=== PATIENT | female | born 1955 | race Caucasian/White ===

== ENCOUNTER 2018-02-21 03:52 | Emergency (ER) | END 2018-02-21 06:02 | disposition home or self-care (01) ==

== ENCOUNTER 2018-12-04 18:58 | Inpatient (IN) | payer OTHER ==
[~2018-12-04] VITALS: Ht 167.6 cm; Wt 74.2 kg
[~2018-12-04 18:58] MED LIST: HYDR-906 PO; LEVO88TA36 PO; LOSA25TA2 PO; NAPR-688 PO; OMEP20CA16 PO; SIMV20TA2 PO; TYL500 PO
[2018-12-04] MEDS ORDERED: morphine 4 MG/ML VIAL IV STA (21:52)
[2018-12-04] MEDS ORDERED: ONDANSETRON 4 MG INJ IV STA (21:52)
--- NOTE | 2018-12-04 21:55 | ERD ---
ER Documentation Chief Complaint Chief Complaint AP HPI 63-year-old female history of hypertension, migraine headaches, thyroid disease, cholelithiasis and remote appendectomy presents to the ED complaining of a 2-day history of worsening, severe, epigastric and right upper quadrant pain that radiates to the back. Denies nausea, vomiting, diarrhea or constipation. No hematemesis, hematochezia or melena. Denies chest pain, palpitations or shortness of breath. No relieving or exacerbating factors. No fevers or chills. ROS All systems reviewed and are negative except as per history of present illness. Medications Home Meds Active Scripts Tramadol Hcl* (Ultram*) 50 Mg Tablet, 50 MG PO Q6H PRN for PAIN, #10 TAB Prov:SAROJ FOLEY PORTER USED CAR LOT 12/07/18 Docusate Sodium* (Colace*) 100 Mg Capsule, 100 MG PO BID, #20 CAP Prov:SAROJ FOLEY NP 12/07/18 Cholecalciferol* (Vitamin D3*) 1,000 Unit Tablet, 1000 UNIT PO DAILY, #30 TAB Prov:SAROJ FOLEY PORTER USED CAR LOT 12/07/18 Reported Medications Famotidine* (Acid Controller*) 20 Mg Tablet, 20 MG PO BID for 30 Days, #60 12/04/18 Diclofenac Potassium (Diclofenac Potassium) 50 Mg Tablet, 50 MG PO BID for 30 Days, #60 12/04/18 Loratadine* (Loratadine*) 10 Mg Tablet, 10 MG PO DAILY PRN for allergy 12/04/18 Fluticasone Propionate* (Fluticasone Propionate* Nasal) 50 Mcg/Ponce - 16 Gm Ponce.susp, 1 SPRAY NASAL BID, #1 BOTTLE TO EACH NOSTRIL 12/04/18 Turmeric (TURMERIC) 1 Gm Powder, 1 GM MC DAILY 12/04/18 Levothyroxine Sodium (Levothroid) 88 Mcg Tablet, 88 MCG PO DAILY 07/29/12 Losartan Potassium* (Cozaar*) 25 Mg Tablet, 25 MG PO DAILY 07/29/12 Discontinued Reported Medications Ketotifen Fumarate (KETOTIFEN FUMARATE) 5 Ml Drops, 5 ML OP, BOTTLE 12/04/18 Naproxen* (Naproxen*) 500 Mg Tablet, 500 MG PO BID 07/29/12 Simvastatin (Simvastatin) 20 Mg Tablet, 20 MG PO DAILY 07/29/12 Discontinued Scripts Acetaminophen* (Tylenol*) 500 Mg Tab, 500 MG PO Q4H PRN for MILD PAIN LEVEL 1-3, #20 TAB Prov:MARISSA CERVANTES DO 02/21/18 Omeprazole* (Omeprazole*) 20 Mg Capsule.dr, 20 MG PO DAILY, #30 CAP Prov:EN JOSÉ MD 12/21/15 Hydrocodone Bit-Acetaminophen ([place]) 5-325 Mg Tablet, 1 TAB PO Q4H PRN for PAIN, #10 TAB Prov:EN JOSÉ MD 12/21/15 Allergies Allergies: Coded Allergies: No Known Allergy (Unverified , 12/04/18) PMhx/Soc Reviewed in chart. As per HPI. History of Surgery: Yes (TONSILLECTOMY, APPENDECTOMY) Anesthesia Reaction: No Hx Neurological Disorder: Yes (hypothyroidism) Hx Respiratory Disorders: No Hx Cardiac Disorders: Yes (HTN, THYROID, HIGH CHOLESTEROL) Hx Psychiatric Problems: No Hx Miscellaneous Medical Probl: Yes (MIGRAINES, UTI) Hx Alcohol Use: No Hx Substance Use: No Hx Tobacco Use: No Smoking Status: Never smoker FmHx No stroke or cancer Physical Exam Vitals Vital Signs Date Temp Pulse Resp B/P (MAP) Pulse Ox O2 O2 Flow FiO2 Time Delivery Rate 12/04/18 68 13 123/78 97 Room Air 23:21 (93) 12/04/18 78 16 140/49 100 Room Air 22:53 (79) 12/04/18 99.2 96 18 181/89 96 19:04 (119) Physical Exam Const: No acute distress Head: Atraumatic Eyes: Normal Conjunctiva ENT: Normal External Ears, Nose and Mouth. Neck: Full range of motion. No meningismus. Resp: Clear to auscultation bilaterally Cardio: Regular rate and rhythm, no murmurs Abd: Soft, non tender, non distended. Normal bowel sounds Skin: No petechiae or rashes Back: No midline or flank tenderness Ext: No cyanosis, or edema Neur: Awake and alert Psych: Normal Mood and Affect Result Diagram: 12/07/188 12/07/18447 Results 24 hrs Laboratory Tests Test 12/04/18 21:15 12/04/18 21:25 12/05/18 00:01 Urine Color YELLOW Urine Clarity CLEAR Urine pH 6.0 Urine Specific [place] 1.004 Urine Ketones NEGATIVE mg/dL Urine Nitrite NEGATIVE mg/dL Urine Bilirubin NEGATIVE mg/dL Urine Urobilinogen 2+ mg/dL Urine Leukocyte Esterase NEGATIVE [place]/ul Urine Microscopic RBC 4 /HPF Urine Microscopic WBC 1 /HPF Urine Hemoglobin 2+ mg/dL Urine Glucose NEGATIVE mg/dL Urine Total Protein NEGATIVE mg/dl White Blood Count 9.2 10^3/ul Red Blood Count 5.09 10^6/ul Hemoglobin 14.7 g/dl Hematocrit 44.6 % Mean Corpuscular Volume 87.6 fl Mean Corpuscular Hemoglobin 28.9 pg Mean Corpuscular 33.0 g/dl Hemoglobin Concent Red Cell Distribution Width 14.4 % Platelet Count 252 10^3/UL Mean Platelet Volume 10.6 fl Immature Granulocytes % 0.300 % Neutrophils % 73.2 % Lymphocytes % 20.6 % Monocytes % 4.9 % Eosinophils % 0.7 % Basophils % 0.3 % Nucleated Red Blood Cells % 0.0 /100WBC Immature Granulocytes # 0.030 10^3/ul Neutrophils # 6.8 10^3/ul Lymphocytes # 1.9 10^3/ul Monocytes # 0.5 10^3/ul Eosinophils # 0.1 10^3/ul Basophils # 0.0 10^3/ul Nucleated Red Blood Cells # 0.0 10^3/ul Sodium Level 142 mmol/L Potassium Level 3.9 mmol/L Chloride Level 101 mmol/L Carbon Dioxide Level 27 mmol/L Anion Gap 14 Blood Urea Nitrogen 9 mg/dl Creatinine 0.88 mg/dl Est Glomerular Filtrat > 60 mL/min Rate mL/min Glucose Level 150 mg/dl Calcium Level 9.9 mg/dl Total Bilirubin 2.3 mg/dl Direct Bilirubin 0.40 mg/dl Indirect Bilirubin 1.9 mg/dl Aspartate Amino 451 IU/L Transf (AST/SGOT) Alanine 635 IU/L Aminotransferase (ALT/SGPT) Alkaline Phosphatase 196 IU/L Troponin I < 0.012 ng/ml Total Protein 8.3 g/dl Albumin 4.8 g/dl Globulin 3.50 g/dl Albumin/Globulin Ratio 1.37 Lipase 81 U/L Salicylates Level < 1.0 mg/dl Acetaminophen Level < 10.0 ug/ml Ethyl Alcohol Level < 10.0 mg/dl Hepatitis A IgM Antibody NON-REACTIVE Hepatitis B Surface Antigen NEGATIVE Hepatitis B Surface Antibody NEGATIVE Hepatitis B Core Total Antibody NEGATIVE Hepatitis C Antibody NEGATIVE Current Medications Medications Dose Sig/Reagan Start Time Status Last (Trade) Ordered Route PRN Stop Time Admin Dose Reason Admin Morphine 4 mg ONCE STAT 12/04/18 DC 12/04/18 Sulfate IV 21:52 12/04/18 21:59 (morphine) 21:53 Ondansetron 4 mg ONCE STAT 12/04/18 DC 12/04/18 HCl (Zofran IV 21:52 12/04/18 21:58 Inj) 21:53 Procedures/MDM DOCUMENTS REVIEWED: ED nurse, prior ED, prior records EKG: Time: 2228. Sinus rhythm. Ventricular rate 67. No ectopy. Normal TX and QRS. Nonspecific T wave changes. No acute ST elevation or depression. My Interpretation IMAGING: PROCEDURE: US Abdomen. CLINICAL INDICATION: Abdominal Pain TECHNIQUE: Multiple real-time images were acquired of the patient's abdomen and retroperitoneum utilizing a high resolution transducer. COMPARISON: None FINDINGS: The liver is of normal size and contour with no mass or intrahepatic ductal dilatation. There is fatty infiltration. Portal and hepatic vein are patent on color flow Doppler imaging. The common bile duct measures 5.2 millimeter in transverse diameter. sludge and stones are seen in the lumen of the gallbladder.. Gallbladder wall is not thickened and no abnormal pericholecystic fluid collection is seen. No sonographic Pelletier's sign was elicited during this exam. There is no ascites. The pancreas is grossly normal but not well visualized.. Right kidney measures 10.1 cm. No hydronephrosis, calculus or solid renal masses seen. There is an 8 mm parapelvic cyst of the right kidney. There is no evidence of abdominal aortic aneurysm or caval thrombosis. IMPRESSION: Sludge and stones in the lumen gallbladder. No evidence of cholecystitis or biliary obstruction. Fatty liver. 8 mm parapelvic cyst right kidney. .Vikash Boateng MD, MD Date Time Electronically viewed and signed by .Vikash Boateng MD, MD on 12/04/2018 23:25 .A/ CALLS/CONSULTATIONS: Dr Chamorro [employer]KIN-year-old female history of hypertension, migraine headaches, thyroid disease, cholelithiasis and remote appendectomy presents to the ED complaining of a 2-day history of worsening, severe, epigastric and right upper quadrant pain that radiates to the back. CBC negative for leukocytosis or anemia. Chemistry reveals no evidence of renal insufficiency or electrolyte abnormalities. Liver function tests significant for transaminitis and hyperbilirubinemia. Ultrasound reveals cholelithiasis but no CBD dilatation, pericholecystic fluid or gallbladder wall thickening. No evidence of pancreatitis as lipase is negative. Patient with transaminitis and hyperbilirubinemia suggestive of choledocholithiasis; will require admission for ERCP possible cholecystectomy. Admit to [facility] for surgery consultation, GI c onsultation, further evaluation and management. Counseled patient regarding diagnostic workup, diagnosis and need for admission. CARE TRANSFERRED. Time: 00:06 Dr Mcguire Departure Diagnosis: Primary Impression: Acute abdominal pain in right upper quadrant Additional Impressions: Cholelithiasis Cholelithiasis location: gallbladder Cholecystitis presence: without cho lecystitis Biliary obstruction: with biliary obstruction Qualified Codes: K80.21 - Calculus of gallbladder without cholecystitis with obstruction Biliary colic Hyperbilirubinemia Transaminitis Condition: Serious SHAYY CLINTON MD Dec 04, 2018 21:55
[2018-12-04] MEDS ORDERED: DICL50TA2 PO (23:54)
[2018-12-04] MEDS ORDERED: FLUT16SP17 NASAL (23:54)
[2018-12-04] MEDS ORDERED: KETO5DRO22 OP (23:54)
[2018-12-04] MEDS ORDERED: FAMO-142 PO (23:54)
[2018-12-04] MEDS ORDERED: TURM1POW MC (23:54)
[2018-12-04] MEDS ORDERED: LORA10TA3 PO (23:54)
[2018-12-05] VITALS (19 sets, daily range): BP systolic 128–170; BP diastolic 67–98; PULSE 62–80; RESP 12–20; Ht 167.6 cm; Wt 74.2 kg
[2018-12-05] MEDS ORDERED: ACETAMINOPHEN 325 MG TAB PO PRN (00:30)
[2018-12-05] MEDS ORDERED: ONDANSETRON 4 MG INJ IV PRN ×2 (00:30→17:30)
[2018-12-05] MEDS ORDERED: DOCUSATE SODIUM 100 MG CAP PO PRN (00:30)
[2018-12-05] MEDS ORDERED: NACL 0.9% 3 ML SYG IV SCH (00:30)
[2018-12-05] MEDS ORDERED: BISACODYL (EC) 5 MG TAB PO PRN (00:30)
[2018-12-05] MEDS ORDERED: HYDROmorphONE 0.5 MG/0.5 ML SYG IV PRN (00:30)
--- NOTE | 2018-12-05 02:28 | HP ---
Date/Time of Note Date/Time of Note DATE: 12/05/18 TIME: 02:28 Assessment/Plan VTE Prophylaxis SCD applied (from Nsg): Yes Pharmacological prophylaxis: NA/contraindicated Pharm contraindication: low risk/ambulating Lines/Catheters IV Catheter Type (from Nrsg): Saline Lock Urinary Cath still in place: No Assessment/Plan Hospital Course This is a 63-year female being admitted to the [facility] floor for: #1 transaminitis with hyperbilirubinemia: Etiology possibly secondary to biliary obstruction secondary to gallstones/sludge versus hepatitis. Patient does have a history of gallstones in the past. Ultrasound shows:Sludge and stones in the lumen gallbladder. No evidence of cholecystitis or biliary obstruction. Patient does not have any fevers or an elevated white blood cell count. At this point we will proceed with MRCP of the abdomen to fully evaluate. Will consult GI chetty. We will also check hepatitis panel, salicylate, acetaminophen levels, e thanol level. Clear liquid diet. Pain management. Monitor for signs of fever. General surgery is also been consulted by the ED Dr. Chamorro. #2 hypothyroidism: Check TSH, resume levothyroxine #3 hypertension: Resume lisinopril #4 GERD: Resume famotidine #5 migraines: Monitor at the current time. Will treat as indicated. No indication for naproxen or diclofenac at the current time #6 DVT GI Proflex: SCDs, no GI prophylaxis indicated Further treatment strategy will be implemented as per the clinical course Result Diagram: 12/04/18212412/04/182124 Results 24hrs Laboratory Tests Test 12/04/18 21:15 12/04/18 21:25 12/05/18 00:01 Urine Color YELLOW Urine Clarity CLEAR Urine pH 6.0 Urine Specific [place] 1.004 Urine Ketones NEGATIVE Urine Nitrite NEGATIVE Urine Bilirubin NEGATIVE Urine Urobilinogen 2+ H Urine Leukocyte Esterase NEGATIVE Urine Microscopic RBC 4 Urine Microscopic WBC 1 Urine Hemoglobin 2+ H Urine Glucose NEGATIVE Urine Total Protein NEGATIVE White Blood Count 9.2 Red Blood Count 5.09 Hemoglobin 14.7 Hematocrit 44.6 Mean Corpuscular Volume 87.6 Mean Corpuscular Hemoglobin 28.9 L Mean Corpuscular Hemoglobin Concent 33.0 Red Cell Distribution Width 14.4 Platelet Count 252 Mean Platelet Volume 10.6 H Immature Granulocytes % 0.300 Neutrophils % 73.2 Lymphocytes % 20.6 Monocytes % 4.9 Eosinophils % 0.7 Basophils % 0.3 Nucleated Red Blood Cells % 0.0 Immature Granulocytes # 0.030 Neutrophils # 6.8 Lymphocytes # 1.9 Monocytes # 0.5 Eosinophils # 0.1 Basophils # 0.0 Nucleated Red Blood Cells # 0.0 Sodium Level 142 Potassium Level 3.9 Chloride Level 101 Carbon Dioxide Level 27 Anion Gap 14 H Blood Urea Nitrogen 9 Creatinine 0.88 Est Glomerular Filtrat Rate mL/min > 60 Glucose Level 150 Calcium Level 9.9 Total Bilirubin 2.3 H Direct Bilirubin 0.40 H Indirect Bilirubin 1.9 H Aspartate Amino Transf (AST/SGOT) 451 H Alanine Aminotransferase (ALT/SGPT) 635 H Alkaline Phosphatase 196 H Troponin I < 0.012 Total Protein 8.3 H Albumin 4.8 Globulin 3.50 H Albumin/Globulin Ratio 1.37 Lipase 81 Salicylates Level < 1.0 L Acetaminophen Level < 10.0 L Ethyl Alcohol Level < 10.0 H Hepatitis B Surface Antigen NEGATIVE Hepatitis B Core Total Antibody Pending Hepatitis C Antibody Pending HPI/ROS Admit Date/Time Admit Date/Time Dec 05, 2018 at 00:15 Hx of Present Illness cc: ab pain x 3 days This is [id number] female history of hypertension, migraine headaches, thyroid disease, cholelithiasis and appendectomy presents to the ED complaining of a 3- day history of worsening, severe, epigastric and right upper quadrant pain that radiates to the back. Did report chills. Denies nausea, vomiting, diarrhea or constipation. No hematemesis, hematochezia or melena. Denies chest pain, palpitations or shortness of breath. No relieving or exacerbating factors. allergies: bactrim meds: see nov Const: As per HPI Eyes : No pain discharge or redness or change in visual acuity ENT: No pain, sore throat, congestion, congestion, dysphagia or discharge Respiratory: No shortness of breath, cough, sputum, wheezing, or pleuritic pain Cardiovascular: No chest pain, palpitation, PND, or edema GI : As per HPI Genitourinary: No dysuria, hematuria, flank pain , discharge or CVA tenderness Musculoskeletal: No joint pain, back pain, neck pain, restricted range of motion in neck or joints Skin: No rash, bruising or hives Neuro: No headache, dizziness, syncope, seizure, focal weakness Endocrine: No polyuria, polydipsia, temperature intolerance Psych: No hallucination, depression, anxiety or suicidal ideation PMH/Family/Social Past Medical History Hypothyroidism Hypertension GERD Migraines Medications Current Medications Famotidine (Pepcid) 20 mg BID PO ; Start 12/05/18 at 09:00 Levothyroxine Sodium (Synthroid) 88 mcg DAILY PO ; Start 12/05/18 at 09:00 IV Flush (NS 3 ml) 3 ml PER PROTOCOL IV ; Start 12/05/18 at 00:30 Ondansetron HCl (Zofran Inj) 4 mg Q6H PRN IV NAUSEA/VOMITING; Start 12/05/18 at 00:30 Acetaminophen (Tylenol Tab) 650 mg Q6H PRN PO .PAIN 1-3 OR TEMP; Start 12/05/18 at 00:30 Hydromorphone HCl (Dilaudid) 0.5 mg Q4H PRN IV .SEVERE PAIN 7-10; Start 12/05/18 at 00:30 Docusate Sodium (Colace) 100 mg Q12H PRN PO .CONSTIPATION; Start 12/05/18 at 00:30 Bisacodyl (Dulcolax) 5 mg DAILY PRN PO .CONSTIPATION; Start 12/05/18 at 00:30 Coded Allergies: No Known Allergy (Unverified , 12/04/18) Past Surgical History Appendectomy x1 Tonsillectomy Family History Significant Family History: no pertinent family hx Social History Alcohol Use: none Smoking Status: Never smoker Drug Use: none Exam/Review of Systems Vital Signs Vitals Vital Signs Date Temp Pulse Resp B/P (MAP) Pulse Ox O2 O2 Flow FiO2 Time Delivery Rate 12/05/18 98.5 62 20 142/67 94 01:42 (92) 12/05/18 Room Air 01:00 Intake and Output 12/04/18 12/04/18 12/05/18 1515:00 23:00 07:00 IntakeIntake Total 100 ml BalanceBalance 100 ml Exam Exam General: Patient is a pleasant female currently lying in bed in no acute distress HEENT: Atraumatic, normocephalic. The pupils are equal, round and reactive. Extraocular motor are intact, mild scleral icterus Neck: Supple with full range of motion. No rigidity or meningismus Chest: Nontender Lungs: Clear to auscultation bilaterally no crackles rales or wheezing Heart: Normal S1-S2, Regular rhythm and rate. No murmur, S3, or S4 Abdomen: Soft, tenderness to palpation of the right upper quadrant and epigastric region, no rebound tenderness. No guarding., Normal bowel sounds Extremities: Normal to inspection, no edema no cyanosis Neurologic: Normal mental status, speech normal, cranial nerves II through XII are intact, motor and sensory are intact, no focal weakness Additional Comments PROCEDURE: US Abdomen. CLINICAL INDICATION: Abdominal Pain TECHNIQUE: Multiple real-time images were acquired of the patient's abdomen and retroperitoneum utilizing a high resolution transducer. COMPARISON: None FINDINGS: The liver is of normal size and contour with no mass or intrahepatic ductal dila tation. There is fatty infiltration. Portal and hepatic vein are patent on color flow Doppler imaging. The common bile duct measures 5.2 millimeter in transverse diameter. sludge and stones are seen in the lumen of the gallbladder.. Gallbladder wall is not thickened and no abnormal pericholecystic fluid collection is seen. No sonographic Pelletier's sign was elicited during this exam. There is no ascites. The pancreas is grossly normal but not well visualized.. Right kidney measures 10.1 cm. No hydronephrosis, calculus or solid renal masses seen. There is an 8 mm parapelvic cyst of the right kidney. There is no evidence of abdominal aortic aneurysm or caval thrombosis. IMPRESSION: Sludge and stones in the lumen gallbladder. No evidence of cholecystitis or biliary obstruction. Fatty liver. 8 mm parapelvic cyst right kidney. .Vikash Boateng MD, MD Date Time Electronically viewed and signed by .Vikash Boateng MD, on 12/04/2018 23:25 .A/ CC: SHAYY CLINTON MD [id number] SHELDONVIVIAN BRIONES Dec 05, 2018 02:28
[2018-12-05] MEDS ORDERED: LORATADINE 10 MG TAB PO PRN (03:00)
[2018-12-05] MEDS: LOSARTAN 25 MG TAB PO SCH ×2 (03:27→20:24)
[2018-12-05] MEDS: LEVOTHYROXINE 88 MCG TAB PO SCH (07:28)
[2018-12-05] MEDS: FAMOTIDINE 20 MG TAB PO SCH ×2 (08:23→20:23)
[2018-12-05] MEDS: FLUTICASONE 0.05% 16 GM NAS SPRAY NASAL SCH ×3 (08:23→20:24)
[2018-12-05] MEDS ORDERED: LEVOTHYROXINE 88 MCG TAB PO SCH (09:00)
--- NOTE | 2018-12-05 09:14 | PN ---
Date/Time of Note Date/Time of Note DATE: 12/05/18 TIME: 09:13 Assessment/Plan VTE Prophylaxis Risk score (from Ns)>0 risk: 3 SCD applied (from Ns): Yes Pharmacological prophylaxis: NA/contraindicated Pharm contraindication: low risk/ambulating Lines/Catheters IV C[facility] Type [facility]from [facility] Saline Lock Urinary Cath still in place: No Assessment/Plan Hospital Course SUBJECTIVE: Continues to have abdominal pain. OBJECTIVE: Physical Exam General: Adequately build 63 year-old female lying in bed in no apparent distress. HEENT: Normocephalic, atraumatic. Eyes: Icteric sclerae, conjunctivae clear. ENT: Nasal septum midline, oral mucosa is dry. Neck supple, no JVD noticed. Respiratory: Bilaterally diminished breath sounds. No use of accessory muscles of respiration. No adventitious breath sounds. Cardiovascular: S1, S2 heard. Regular rate and rhythm. Abdomen: Soft and nondistended. Epigastric tenderness. Bowel sounds positive in all 4 quadrants. Genitourinary: Deferred. Extremities: No cyanosis, no clubbing, no edema. Peripheral pulses palpable. Neurologic: Cranial nerves II through XII grossly intact. The patient is awake, alert, and oriented. Skin: Normal skin turgor. No skin rashes. Labs & Vitals per chart ASSESSMENT & PLAN 63-year-old female with comorbidities including hypertension, hypothyroidism, migraine headache, and cholelithiasis who came to the emergency room with chief complaint of epigastric and right upper quadrant abdominal pain with ultrasound showing cholelithiasis. 1. Symptomatic cholelithiasis. Possible underlying choledocholithiasis. -Being followed by general surgery and gastroenterology. -ERCP pending. -Continue n.p.o. -Continue pain control. -Continue IV fluids. 2. Transaminitis with hyperbilirubinemia. -Most probably secondary to #1. -Hepatitis panel negative. -Pending ERCP. -Gastroenterology following. 3. Hypertension. -Continue antihypertensives. 4. Hypothyroidism. -Continue Synthroid. 5. History of migraine headaches. -Continue PRN analgesics. 6. Dyslipidemia. -Total cholesterol of 237 and LDL of 149. -Reinforce a low-cholesterol diet. 7. Fluids, electrolytes, and nutrition. -N.p.o. except for medications. -IVFs. 8. DVT prophylaxis. -Bilateral SCDs. 9. Plan. -Continue pain control. -Continue IV fluids. -Await ERCP. -Await gastroenterology and surgical evaluation. The patient was seen in collaboration with Dr. Lowe. Result Diagram: 12/05/18 0514 12/05/18 0514 Results 24hrs Laboratory Tests Test 12/04/18 21:15 12/04/18 21:25 12/05/18 00:01 12/05/18 05:14 Urine Color YELLOW Urine Clarity CLEAR Urine pH 6.0 Urine Specific [place] 1.004 Urine Ketones NEGATIVE Urine Nitrite NEGATIVE Urine Bilirubin NEGATIVE Urine Urobilinogen 2+ H Urine Leukocyte Esterase NEGATIVE Urine Microscopic RBC 4 Urine Microscopic WBC 1 Urine Hemoglobin 2+ H Urine Glucose NEGATIVE Urine Total Protein NEGATIVE White Blood Count 9.2 5.9 # Red Blood Count 5.09 4.79 Hemoglobin 14.7 13.8 Hematocrit 44.6 42.3 Mean Corpuscular Volume 87.6 88.3 Mean Corpuscular 28.9 L 28.8 L Hemoglobin Mean Corpuscular 33.0 32.6 Hemoglobin Concent Red Cell Distribution 14.4 14.6 H Width Platelet Count 252 230 Mean Platelet Volume 10.6 H 10.7 H Immature Granulocytes % 0.300 0.300 Neutrophils % 73.2 59.1 Lymphocytes % 20.6 31.4 Monocytes % 4.9 6.4 Eosinophils % 0.7 2.5 Basophils % 0.3 0.3 Nucleated Red Blood 0.0 0.0 Cells % Immature Granulocytes # 0.030 0.020 Neutrophils # 6.8 3.5 Lymphocytes # 1.9 1.9 Monocytes # 0.5 0.4 Eosinophils # 0.1 0.2 Basophils # 0.0 0.0 Nucleated Red Blood 0.0 0.0 Cells # Sodium Level 142 142 Potassium Level 3.9 3.9 Chloride Level 101 105 Carbon Dioxide Level 27 28 Anion Gap 14 H 9 # Blood Urea Nitrogen 9 9 Creatinine 0.88 0.88 Est Glomerular Filtrat > 60 > 60 Rate mL/min Glucose Level 150 90 # Calcium Level 9.9 9.7 Total Bilirubin 2.3 H 2.0 H Direct Bilirubin 0.40 H 0.00 # Indirect Bilirubin 1.9 H 2.0 H Aspartate Amino 451 H 334 H Transf (AST/SGOT) Alanine 635 H 554 H Aminotransferase (ALT/SG PT) Alkaline Phosphatase 196 H 166 H Troponin I < 0.012 Total Protein 8.3 H 7.5 Albumin 4.8 4.2 Globulin 3.50 H 3.30 H Albumin/Globulin Ratio 1.37 1.27 Lipase 81 Salicylates Level < 1.0 L Acetaminophen Level < 10.0 L Ethyl Alcohol Level < 10.0 H Hepatitis B Surface NEGATIVE Antigen Hepatitis B Surface NEGATIVE Antibody Hepatitis B Core NEGATIVE Total Antibody Hepatitis C Antibody NEGATIVE Hemoglobin A1c 5.4 Magnesium Level 1.9 Triglycerides Level 66 Cholesterol Level 237 H LDL Cholesterol, 149 Calculated HDL Cholesterol 75 Cholesterol/HDL Ratio 3.1 Thyroid Stimulating 20.800 H Hormone (TSH) Exam/Review of Systems Exam Vitals Vital Signs Date Temp Pulse Resp B/P (MAP) Pulse Ox O2 O2 Flow FiO2 Time Delivery Rate 12/05/18 97.7 70 18 128/76 95 07:19 (93) 12/05/18 Room Air 01:00 Intake and Output 12/04/18 12/04/18 12/05/18 1414:59 22:59 06:59 IntakeIntake Total 200 ml BalanceBalance 200 ml Results Results 24hrs Laboratory Tests Test 12/04/18 21:15 12/04/18 21:25 12/05/18 00:01 12/05/18 05:14 Urine Color YELLOW Urine Clarity CLEAR Urine pH 6.0 Urine Specific [place] 1.004 Urine Ketones NEGATIVE Urine Nitrite NEGATIVE Urine Bilirubin NEGATIVE Urine Urobilinogen 2+ H Urine Leukocyte Esterase NEGATIVE Urine Microscopic RBC 4 Urine Microscopic WBC 1 Urine Hemoglobin 2+ H Urine Glucose NEGATIVE Urine Total Protein NEGATIVE White Blood Count 9.2 5.9 # Red Blood Count 5.09 4.79 Hemoglobin 14.7 13.8 Hematocrit 44.6 42.3 Mean Corpuscular Volume 87.6 88.3 Mean Corpuscular 28.9 L 28.8 L Hemoglobin Mean Corpuscular 33.0 32.6 Hemoglobin Concent Red Cell Distribution 14.4 14.6 H Width Platelet Count 252 230 Mean Platelet Volume 10.6 H 10.7 H Immature Granulocytes % 0.300 0.300 Neutrophils % 73.2 59.1 Lymphocytes % 20.6 31.4 Monocytes % 4.9 6.4 Eosinophils % 0.7 2.5 Basophils % 0.3 0.3 Nucleated Red Blood 0.0 0.0 Cells % Immature Granulocytes # 0.030 0.020 Neutrophils # 6.8 3.5 Lymphocytes # 1.9 1.9 Monocytes # 0.5 0.4 Eosinophils # 0.1 0.2 Basophils # 0.0 0.0 Nucleated Red Blood 0.0 0.0 Cells # Sodium Level 142 142 Potassium Level 3.9 3.9 Chloride Level 101 105 Carbon Dioxide Level 27 28 Anion Gap 14 H 9 # Blood Urea Nitrogen 9 9 Creatinine 0.88 0.88 Est Glomerular Filtrat > 60 > 60 Rate mL/min Glucose Level 150 90 # Calcium Level 9.9 9.7 Total Bilirubin 2.3 H 2.0 H Direct Bilirubin 0.40 H 0.00 # Indirect Bilirubin 1.9 H 2.0 H Aspartate Amino 451 H 334 H Transf (AST/SGOT) Alanine 635 H 554 H Aminotransferase (ALT/SG PT) Alkaline Phosphatase 196 H 166 H Troponin I < 0.012 Total Protein 8.3 H 7.5 Albumin 4.8 4.2 Globulin 3.50 H 3.30 H Albumin/Globulin Ratio 1.37 1.27 Lipase 81 Salicylates Level < 1.0 L Acetaminophen Level < 10.0 L Ethyl Alcohol Level < 10.0 H Hepatitis B Surface NEGATIVE Antigen Hepatitis B Surface NEGATIVE Antibody Hepatitis B Core NEGATIVE Total Antibody Hepatitis C Antibody NEGATIVE Hemoglobin A1c 5.4 Magnesium Level 1.9 Triglycerides Level 66 Cholesterol Level 237 H LDL Cholesterol, 149 Calculated HDL Cholesterol 75 Cholesterol/HDL Ratio 3.1 Thyroid Stimulating 20.800 H Hormone (TSH) Medications Medication Current Medications Famotidine (Pepcid) 20 mg BID PO Last administered on 12/05/18at 08:23; Admin D ose 20 MG; Start 12/05/18 at 09:00 IV Flush (NS 3 ml) 3 ml PER PROTOCOL IV ; Start 12/05/18 at 00:30 Ondansetron HCl (Zofran Inj) 4 mg Q6H PRN IV NAUSEA/VOMITING; Start 12/05/18 at 00:30 Acetaminophen (Tylenol Tab) 650 mg Q6H PRN PO .PAIN 1-3 OR TEMP; Start 12/05/18 at 00:30 Hydromorphone HCl (Dilaudid) 0.5 mg Q4H PRN IV .SEVERE PAIN 7-10; Start 12/05/18 at 00:30 Docusate Sodium (Colace) 100 mg Q12H PRN PO .CONSTIPATION; Start 12/05/18 at 00:30 Bisacodyl (Dulcolax) 5 mg DAILY PRN PO .CONSTIPATION; Start 12/05/18 at 00:30 Fluticasone Propionate (Flonase 0.05% Nasal) 1 spray BID NASAL Last admini stered on 12/05/18at 08:23; Admin Dose 1 SPRAY; Start 12/05/18 at 09:00 Loratadine (Claritin) 10 mg DAILY PRN PO allergy; Start 12/05/18 at 03:00 Losartan Potassium (Cozaar) 25 mg QHS PO Last administered on 12/05/18at 03:27; Admin Dose 25 MG; Start 12/05/18 at 03:00 Levothyroxine Sodium (Synthroid) 88 mcg DAILY@0600 PO Last administered on 12/05/18at 07:28; Admin Dose 88 MCG; Start 12/05/18 at 06:00 SAROJ FOLEY NP Dec 05, 2018 09:14
--- NOTE | 2018-12-05 09:55 | CONS ---
Assessment/Plan Assessment/Plan Assessment/Plan (Daily) Patient very likely has choledocholithiasis and is scheduled for ERCP. Since there is no evidence of cholecystitis, if ERCP is successful patient can undergo interval cholecystectomy electively at another time. Further recommendations will be forthcoming based on the patient's further workup and clinical course. I will follow with you Consultation Date/Type/Reason Admit Date/Time Dec 05, 2018 at 00:15 Date of Consultation: Dec 05, 2018 Type of Consult General surgery Reason for Consultation Gallstones and jaundice Date/Time of Note DATE: 12/05/18 TIME: 09:48 Hx of Present Illness The patient is a reasonably healthy 63-year-old female who was first diagnosed with gallstones approximately 3 years ago. She has been asymptomatic. She now presents with 2 days of upper abdominal pain radiating to the back associated with slight jaundice. Abdominal ultrasound does not show signs of cholecystitis. Her LFTs suggest choledocholithiasis, and the patient is scheduled for ERCP today. She has had no fevers or chills. Review of systems: Head ears eyes nose and throat: Hypothyroidism Pulmonary: No evidence of asthma, pneumonia or shortness of breath Cardiac: Hypertension and hyperlipidemia. No history of chest pain, MO or arrhythmia Abdomen: As in the HPI. History of appendectomy Extremities: Unremarkable Neurologic. Asymptomatic : 4 pregnancies and 3 abortions Past Medical History Medical History: gallstones, hypothyroid Home Meds Active Scripts Acetaminophen* (Tylenol*) 500 Mg Tab, 500 MG PO Q4H PRN for MILD PAIN LEVEL 1-3, #20 TAB Prov:MARISSA CERVANTES DO 02/21/18 Reported Medications Famotidine* (Acid Controller*) 20 Mg Tablet, 20 MG PO BID for 30 Days, #60 12/04/18 Diclofenac Potassium (Diclofenac Potassium) 50 Mg Tablet, 50 MG PO BID for 30 Days, #60 12/04/18 Loratadine* (Loratadine*) 10 Mg Tablet, 10 MG PO DAILY PRN for allergy 12/04/18 Fluticasone Propionate* (Fluticasone Propionate* Nasal) 50 Mcg/[place] - 16 Gm [place].susp, 1 SPRAY NASAL BID, #1 BOTTLE TO EACH NOSTRIL 12/04/18 Ketotifen Fumarate (KETOTIFEN FUMARATE) 5 Ml Drops, 5 ML OP, BOTTLE 12/04/18 Turmeric (TURMERIC) 1 Gm Powder, 1 GM MC DAILY 12/04/18 Naproxen* (Naproxen*) 500 Mg Tablet, 500 MG PO BID 07/29/12 Levothyroxine Sodium (Levothroid) 88 Mcg Tablet, 88 MCG PO DAILY 07/29/12 Losartan Potassium* (Cozaar*) 25 Mg Tablet, 25 MG PO DAILY 07/29/12 Discontinued Reported Medications Simvastatin (Simvastatin) 20 Mg Tablet, 20 MG PO DAILY 07/29/12 Discontinued Scripts Omeprazole* (Omeprazole*) 20 Mg Capsule.dr, 20 MG PO DAILY, #30 CAP Prov:EN JOSÉ MD 12/21/15 Hydrocodone Bit-Acetaminophen ([place]) 5-325 Mg Tablet, 1 TAB PO Q4H PRN for PAIN, #10 TAB Prov:EN JOSÉ MD 12/21/15 Medications Current Medications Famotidine (Pepcid) 20 mg BID PO Last administered on 12/05/18at 08:23; Admin D ose 20 MG; Start 12/05/18 at 09:00 IV Flush (NS 3 ml) 3 ml PER PROTOCOL IV ; Start 12/05/18 at 00:30 Ondansetron HCl (Zofran Inj) 4 mg Q6H PRN IV NAUSEA/VOMITING; Start 12/05/18 at 00:30 Acetaminophen (Tylenol Tab) 650 mg Q6H PRN PO .PAIN 1-3 OR TEMP; Start 12/05/18 at 00:30 Hydromorphone HCl (Dilaudid) 0.5 mg Q4H PRN IV .SEVERE PAIN 7-10; Start 12/05/18 at 00:30 Docusate Sodium (Colace) 100 mg Q12H PRN PO .CONSTIPATION; Start 12/05/18 at 00:30 Bisacodyl (Dulcolax) 5 mg DAILY PRN PO .CONSTIPATION; Start 12/05/18 at 00:30 Fluticasone Propionate (Flonase 0.05% Nasal) 1 spray BID NASAL Last admini stered on 12/05/18at 08:23; Admin Dose 1 SPRAY; Start 12/05/18 at 09:00 Loratadine (Claritin) 10 mg DAILY PRN PO allergy; Start 12/05/18 at 03:00 Losartan Potassium (Cozaar) 25 mg QHS PO Last administered on 12/05/18at 03:27; Admin Dose 25 MG; Start 12/05/18 at 03:00 Levothyroxine Sodium (Synthroid) 88 mcg DAILY@0600 PO Last administered on 12/05/18at 07:28; Admin Dose 88 MCG; Start 12/05/18 at 06:00 Allergies: Coded Allergies: No Known Allergy (Unverified , 12/04/18) Past Surgical History Past Surgical Hx: appendectomy Family History Significant Family History: no pertinent family hx Social History Alcohol Use: none Smoking Status: Never smoker Drug Use: none Exam/Review of Systems Exam Vitals Vital Signs Date Temp Pulse Resp B/P (MAP) Pulse Ox O2 O2 Flow FiO2 Time Delivery Rate 12/05/18 97.7 70 18 128/76 95 07:19 (93) 12/05/18 Room Air 01:00 Intake and Output 12/04/18 12/04/18 12/05/18 1515:00 23:00 07:00 IntakeIntake Total 200 ml BalanceBalance 200 ml Constitutional: alert, oriented Psych: no complaints Head: normocephalic Eyes: other (Slight scleral icterus) ENMT: nl external ears & nose Neck: supple Respiratory: clear to auscultation Cardiovascular: regular rate and rhythm Gastrointestinal: soft, non-tender Musculoskeletal: nl extremities to inspection Extremities: normal pulses Neurological: [employer] II-XII intact Results Result Diagram: 12/05/18 0514 12/05/18 0514 Results 24hrs Laboratory Tests Test 12/04/18 21:15 12/04/18 21:25 12/05/18 00:01 12/05/18 05:14 Urine Color YELLOW Urine Clarity CLEAR Urine pH 6.0 Urine Specific [place] 1.004 Urine Ketones NEGATIVE Urine Nitrite NEGATIVE Urine Bilirubin NEGATIVE Urine Urobilinogen 2+ H Urine Leukocyte Esterase NEGATIVE Urine Microscopic RBC 4 Urine Microscopic WBC 1 Urine Hemoglobin 2+ H Urine Glucose NEGATIVE Urine Total Protein NEGATIVE White Blood Count 9.2 5.9 # Red Blood Count 5.09 4.79 Hemoglobin 14.7 13.8 Hematocrit 44.6 42.3 Mean Corpuscular Volume 87.6 88.3 Mean Corpuscular 28.9 L 28.8 L Hemoglobin Mean Corpuscular 33.0 32.6 Hemoglobin Concent Red Cell Distribution 14.4 14.6 H Width Platelet Count 252 230 Mean Platelet Volume 10.6 H 10.7 H Immature Granulocytes % 0.300 0.300 Neutrophils % 73.2 59.1 Lymphocytes % 20.6 31.4 Monocytes % 4.9 6.4 Eosinophils % 0.7 2.5 Basophils % 0.3 0.3 Nucleated Red Blood 0.0 0.0 Cells % Immature Granulocytes # 0.030 0.020 Neutrophils # 6.8 3.5 Lymphocytes # 1.9 1.9 Monocytes # 0.5 0.4 Eosinophils # 0.1 0.2 Basophils # 0.0 0.0 Nucleated Red Blood 0.0 0.0 Cells # Sodium Level 142 142 Potassium Level 3.9 3.9 Chloride Level 101 105 Carbon Dioxide Level 27 28 Anion Gap 14 H 9 # Blood Urea Nitrogen 9 9 Creatinine 0.88 0.88 Est Glomerular Filtrat > 60 > 60 Rate mL/min Glucose Level 150 90 # Calcium Level 9.9 9.7 Total Bilirubin 2.3 H 2.0 H Direct Bilirubin 0.40 H 0.00 # Indirect Bilirubin 1.9 H 2.0 H Aspartate Amino 451 H 334 H Transf (AST/SGOT) Alanine 635 H 554 H Aminotransferase (ALT/SG PT) Alkaline Phosphatase 196 H 166 H Troponin I < 0.012 Total Protein 8.3 H 7.5 Albumin 4.8 4.2 Globulin 3.50 H 3.30 H Albumin/Globulin Ratio 1.37 1.27 Lipase 81 Salicylates Level < 1.0 L Acetaminophen Level < 10.0 L Ethyl Alcohol Level < 10.0 H Hepatitis B Surface NEGATIVE Antigen Hepatitis B Surface NEGATIVE Antibody Hepatitis B Core NEGATIVE Total Antibody Hepatitis C Antibody NEGATIVE Hemoglobin A1c 5.4 Magnesium Level 1.9 Triglycerides Level 66 Cholesterol Level 237 H LDL Cholesterol, 149 Calculated HDL Cholesterol 75 Cholesterol/HDL Ratio 3.1 Thyroid Stimulating 20.800 H Hormone (TSH) Medications Medication Current Medications Famotidine (Pepcid) 20 mg BID PO Last administered on 12/05/18at 08:23; Admin Dose 20 MG; Start 12/05/18 at 09:00 IV Flush (NS 3 ml) 3 ml PER PROTOCOL IV ; Start 12/05/18 at 00:30 Ondansetron HCl (Zofran Inj) 4 mg Q6H PRN IV NAUSEA/VOMITING; Start 12/05/18 at 00:30 Acetaminophen (Tylenol Tab) 650 mg Q6H PRN PO .PAIN 1-3 OR TEMP; Start 12/05/18 at 00:30 Hydromorphone HCl (Dilaudid) 0.5 mg Q4H PRN IV .SEVERE PAIN 7-10; Start 12/05/18 at 00:30 Docusate Sodium (Colace) 100 mg Q12H PRN PO .CONSTIPATION; Start 12/05/18 at 00:30 Bisacodyl (Dulcolax) 5 mg DAILY PRN PO .CONSTIPATION; Start 12/05/18 at 00:30 Fluticasone Propionate (Flonase 0.05% Nasal) 1 spray BID NASAL Last administered on 12/05/18at 08:23; Admin Dose 1 SPRAY; Start 12/05/18 at 09:00 Loratadine (Claritin) 10 mg DAILY PRN PO allergy; Start 12/05/18 at 03:00 Losartan Potassium (Cozaar) 25 mg QHS PO Last administered on 12/05/18at 03:27; Admin Dose 25 MG; Start 12/05/18 at 03:00 Levothyroxine Sodium (Synthroid) 88 mcg DAILY@0600 PO Last administered on 12/05/18at 07:28; Admin Dose 88 MCG; Start 12/05/18 at 06:00 TERE FERGUSON MD Dec 05, 2018 09:55
--- NOTE | 2018-12-05 12:13 | CONS ---
DATE OF ADMISSION: 12/05/2018 DATE OF CONSULTATION: 12/05/2018 TYPE OF CONSULTATION: Gastroenterology. Dear Dr. Mcguire: Thank you for asking me to see Mrs. Sainz in GI consultation. HISTORY OF PRESENT ILLNESS: The patient, as you know, is a 63-year-old white female who has been exp eriencing epigastric and right upper quadrant pain for the past 3 days and pain has been getting wors e gradually. She had associated nausea but no vomiting. She had some chills, but no fever. Patient had a similar problem several months ago and she was told she has gallstones. No history of jaundice in the past but right now she has got abnormal liver functions. No diarrhea, no constipation. PAST MEDICAL HISTORY: Appendectomy. REVIEW OF SYSTEM: Positive for hypertension, hypothyroidism and migraine. MEDICATIONS: Prior to the admission includes: 1. Losartan. 2. Tylenol. 3. Diclofenac. 4. Naprosyn. 5. Fluticasone. 6. Ketotifen fumarate. 7. Famotidine. 8. Levothyroxine. 9. Turmeric. SOCIAL HISTORY: Patient does not smoke or drink. No history of liver disease in the past. PHYSICAL EXAMINATION: GENERAL: The patient is a 63-year-old white female who at this time she is alert, she is well built. VITAL SIGNS: She is afebrile, blood pressure is 128/76, pulse is 70, respiratory rate 18. CARDIOVASCULAR: Normal heart sounds. RESPIRATORY: Normal breath sounds. ABDOMEN: Showed unremarkable findings. LABORATORY WORKUP: Laboratory workup, potassium 3.9, bilirubin is in the range of 2.3 and 2.0, AST 4 51 and then 334, ALT 675 and 554, alkaline phosphatase 596 and then 166, lipase 81. TSH is 20.8. WB C count down to 5.9 from 9.2, hemoglobin 13.8, platelet count 230,000. Prothrombin time is 12.8, INR is 0.95. The ultrasound of the upper abdomen showed evidence of cholelithiasis, no evidence of chol ecystitis or biliary obstruction, fatty liver. An 8 mm pancreatic cyst noted in the right kidney. CLINICAL IMPRESSION: The patient presenting with what seems like acute cholecystitis, although ultra sound does not show any evidence of cholecystitis. She has abnormal liver functions. Choledocholith iasis is a good possibility. I doubt if we are dealing with hepatocellular process. PLAN: Recommend ERCP to make a diagnosis as well as to remove the stones in the common bile duct. Once again, Dr. Mcguire, thank you for this consultation. Dictated By: NAVI KATE MD NC/NTS Conf#: [id number] DID#: [id number] CC: VIVIAN MCGUIRE MD;*EndCC*
[2018-12-05] MEDS: KETOROLAC 30 MG INJ IV PRN (15:06)
[2018-12-05] MEDS ORDERED: SUGAMMADEX SODIUM 200 MG/2 ML VIAL IV ONE (17:08)
[2018-12-05] MEDS ORDERED: PROPOFOL 100 ML ONE (17:08)
[2018-12-05] MEDS ORDERED: DEXAMETHASONE 4 MG/ML 5 ML INJ ONE (17:08)
[2018-12-05] MEDS ORDERED: LIDOCAINE 100 MG SYRINGE ONE (17:08)
[2018-12-05] MEDS ORDERED: ROCURONIUM 50 MG INJ ONE (17:08)
[2018-12-05] MEDS ORDERED: ONDANSETRON 4 MG INJ ONE (17:08)
--- NOTE | 2018-12-05 17:12 | PREAC ---
Date/Time of Note Date/Time of Note DATE: 12/05/18 TIME: 17:11 Anesthesia Eval and Record Evaluation Time Pre-Procedure Interview DATE: 12/05/18 TIME: 17:11 Age 63 Sex female NPO: 8 hrs Preoperative diagnosis epigastric and right upper quadrant pain Planned procedure ERCP Past Medical History Past Medical History: Includes Cardio: HTN, Dyslipidemia Endo: Hypothyroid GI: GERD Surgery & Anesthesia Issues No known issue Meds Anticoagulation: No Beta Mone within 24 hr: No Reason Beta Mone not given: Pt. not on B-Mone Active Scripts Acetaminophen* (Tylenol*) 500 Mg Tab, 500 MG PO Q4H PRN for MILD PAIN LEVEL 1-3, #20 TAB Prov:MARISSA CERVANTES DO 02/21/18 Reported Medications Famotidine* (Acid Controller*) 20 Mg Tablet, 20 MG PO BID for 30 Days, #60 12/04/18 Diclofenac Potassium (Diclofenac Potassium) 50 Mg Tablet, 50 MG PO BID for 30 Days, #60 12/04/18 Loratadine* (Loratadine*) 10 Mg Tablet, 10 MG PO DAILY PRN for allergy 12/04/18 Fluticasone Propionate* (Fluticasone Propionate* Nasal) 50 Mcg/[place] - 16 Gm [place].susp, 1 SPRAY NASAL BID, #1 BOTTLE TO EACH NOSTRIL 12/04/18 Ketotifen Fumarate (KETOTIFEN FUMARATE) 5 Ml Drops, 5 ML OP, BOTTLE 12/04/18 Turmeric (TURMERIC) 1 Gm Powder, 1 GM MC DAILY 12/04/18 Naproxen* (Naproxen*) 500 Mg Tablet, 500 MG PO BID 07/29/12 Levothyroxine Sodium (Levothroid) 88 Mcg Tablet, 88 MCG PO DAILY 07/29/12 Losartan Potassium* (Cozaar*) 25 Mg Tablet, 25 MG PO DAILY 07/29/12 Discontinued Reported Medications Simvastatin (Simvastatin) 20 Mg Tablet, 20 MG PO DAILY 07/29/12 Discontinued Scripts Omeprazole* (Omeprazole*) 20 Mg Capsule.dr, 20 MG PO DAILY, #30 CAP Prov:EN JOSÉ MD 12/21/15 Hydrocodone Bit-Acetaminophen ([place]) 5-325 Mg Tablet, 1 TAB PO Q4H PRN for PAIN, #10 TAB Prov:EN JOSÉ MD 12/21/15 Current Medications Famotidine (Pepcid) 20 mg BID PO Last administered on 12/05/18at 08:23; Admin Dose 20 MG; Start 12/05/18 at 09:00 IV Flush (NS 3 ml) 3 ml PER PROTOCOL IV ; Start 12/05/18 at 00:30 Ondansetron HCl (Zofran Inj) 4 mg Q6H PRN IV NAUSEA/VOMITING; Start 12/05/18 at 00:30 Acetaminophen (Tylenol Tab) 650 mg Q6H PRN PO .PAIN 1-3 OR TEMP; Start 12/05/18 at 00:30 Hydromorphone HCl (Dilaudid) 0.5 mg Q4H PRN IV .SEVERE PAIN 7-10; Start 12/05/18 at 00:30 Docusate Sodium (Colace) 100 mg Q12H PRN PO .CONSTIPATION; Start 12/05/18 at 00: 30 Bisacodyl (Dulcolax) 5 mg DAILY PRN PO .CONSTIPATION; Start 12/05/18 at 00:30 Fluticasone Propionate (Flonase 0.05% Nasal) 1 spray BID NASAL Last administered on 12/05/18at 08:23; Admin Dose 1 SPRAY; Start 12/05/18 at 09:00 Loratadine (Claritin) 10 mg DAILY PRN PO allergy; Start 12/05/18 at 03:00 Losartan Potassium (Cozaar) 25 mg QHS PO Last administered on 12/05/18at 03:27; Admin Dose 25 MG; Start 12/05/18 at 03:00 Levothyroxine Sodium (Synthroid) 88 mcg DAILY@0600 PO Last administered on 12/05/18at 07:28; Admin Dose 88 MCG; Start 12/05/18 at 06:00 Ketorolac Tromethamine (Toradol) 30 mg Q6H PRN IV PAIN LEVEL 1-3 Last administered on 12/05/18at 15:06; Admin Dose 30 MG; Start 12/05/18 at 15:00; Stop 12/08/18 at 14:59 Meds reviewed: Yes Allergies Coded Allergies: No Known Allergy (Unverified , 12/04/18) Allergies Reviewed: Yes Labs/Studies Labs Reviewed: Reviewed by anesthesiologist Result Diagram: 12/05/18 0514 12/05/18513 Laboratory Tests 12/05/18 05:14 test: N/A Studies: ECG (SR) Pre-procedure Exam Last vitals Vital Signs Date Temp Pulse Resp B/P (MAP) Pulse Ox O2 O2 Flow FiO2 Time Delivery Rate 12/05/18 97.5 73 18 148/78 91 13:33 (101) 12/05/18 Room Air 01:00 Airway: Adequate mouth opening Mallampati: Mallampati II Teeth: Normal Lung: Normal Heart: Normal ASA Physical Status ASA physical status: 2 Emergency: None Planned Anesthetic General/MAC: ETT Pre-operative Attestations Prior to commencing anesthesia and surgery, the patient was re-evaluated, there was verification of: *The patient's identity *The results of appropriate recent lab work and preoperative vital signs *The above evaluation not changing prior to induction *Anesthetic plan, risk benefits, alternative and complications discussed with patient/family; questions answered; patient/family understands, accepts and wishes to proceed. LANDY BRASWELL Dec 05, 2018 17:12
[2018-12-05] MEDS ORDERED: INDOMETHACIN 50 MG SUPP PR ONE (17:30)
[2018-12-05] MEDS ORDERED: hydrALAzine 20 MG INJ IV PRN (17:30)
[2018-12-05] MEDS ORDERED: METOCLOPRAMIDE 10 MG INJ IV PRN (17:30)
[2018-12-05] MEDS ORDERED: LABETALOL HCL 20MG INJ IV PRN (17:30)
[2018-12-05] MEDS ORDERED: FENTAnyl 50 MCG/ML VIAL IV PRN ×2 (17:30)
[2018-12-05] MEDS ORDERED: FENTAnyl 50 MCG/ML VIAL ONE ×2 (17:36→18:18)
--- NOTE | 2018-12-05 18:42 | OPR ---
Date/Time of Note Date/Time of Note DATE: 12/05/18 TIME: 18:36 Operative Report Preoperative Diagnosis obstructive jaundice r/o cbd stones Postoperative Diagnosis sludge removed from cbd stent placed Operation/Procedure Performed ercp sphincterotomy cbd sludge removed stent placed Surgeon see signature line Chlorine Operator none Anesthesia Type: general Anesthesiologist: LANDY BRASWELL Estimated Blood Loss: none Transfusion none Specimen none Grafts/Implants none Complications none Pt Condition Post Procedure: stable Disposition: PACU Indications ?obstructive jaundice r/o cbd stones Procedure Description ercp and sphincterotomy performed sludge removed from cbd cbd stentb placed NAVI KATE MD Dec 05, 2018 18:42
--- NOTE | 2018-12-05 19:01 | PAC ---
Date/Time of Note Date/Time of Note DATE: 12/05/18 TIME: 19:01 Post-Anesthesia Notes Post-Anesthesia Note Last documented vital signs Vital Signs Date Temp Pulse Resp B/P (MAP) Pulse Ox O2 O2 Flow FiO2 Time Delivery Rate 12/05/18 97.5 73 18 148/78 91 13:33 (101) 12/05/18 Room Air 01:00 Activity: WNL Respiratory function: WNL Cardiovascular function: WNL Mental status: Baseline Pain reasonably controlled: Yes Hydration appropriate: Yes Nausea/Vomiting absent: Yes LANDY BRASWELL Dec 05, 2018 19:01
--- NOTE | 2018-12-05 23:53 | GILP ---
DATE OF PROCEDURE: PROCEDURES: ERCP, sphincterotomy, removal of stones from the common bile duct and CBD stent was plac ed. PREOPERATIVE DIAGNOSIS: The patient is presenting with history of abdominal pain and she has got cho lelithiasis on ultrasound. Liver enzymes are abnormal. This could be very likely suggestive of a co mmon bile duct stone. Hence, the procedure is performed to rule out common duct stones. POSTOPERATIVE DIAGNOSIS: Sludge was removed from the common bile duct. Mildly dilated common bile d uct noted. There was a filling defect noted in the common bile duct. Hence, at this time sphinctero garth was performed. Stent was removed. Common bile duct stent was placed. DESCRIPTION OF PROCEDURE: After informed written consent was obtained, patient was intubated by [facility] registered nurse livestock slaughterer, Mr. Flowerrera. While the patient was in prone position, Pentax vid eo side-viewing duodenoscope was inserted into the oropharynx, then into the esophagus, subsequently into the stomach, and then into the duodenum. Ampulla was located in normal location with normal mor phology. Cannulation was performed by using the Dreamtome and there was one filling defect noted marivel ating in the common bile duct and this was felt to be common bile duct stone. Because of this, by us ing the cutting wire of the Dreamtome, sphincterotomy was performed, about 8 mm cut was made and subs equently Dreamtome was removed. Stone extraction balloon was inserted into the common hepatic duct. Balloon sweeping was performed and this yielded the sludge and some gravel from the common bile duct , no large stones noted. After several episodes of sweeping, the balloon was removed. Over the guid ewire, a 10 x 7 [place] type of endobiliary prosthesis was inserted into the common bile duct acros s the ampulla into the duodenum. Photographs were obtained and the procedure was terminated. PLAN: Recommend to proceed with laparoscopic cholecystectomy as per discretion of the surgeon. Dictated By: NAVI LEÓN/MARIA ESTHER Conf#: [id number] DID#: [id number] CC: Dr. garcia; VIVIAN CHUNG MD;*EndCC*
[2018-12-06] VITALS (30 sets, daily range): BP systolic 116–166; BP diastolic 62–90; PULSE 72–97; RESP 13–25
[2018-12-06] MEDS: LEVOTHYROXINE 88 MCG TAB PO SCH (05:26)
[2018-12-06] MEDS ORDERED: SUCCINYLCHOLINE CHLORIDE 100 MG/5 ML SYG IV ONE (07:00)
[2018-12-06] MEDS ORDERED: BUPIVACAINE 0.25% (MPF) 30 ML INJ ONE (07:23)
[2018-12-06] MEDS ORDERED: PROPOFOL 20 ML ONE (07:59)
[2018-12-06] MEDS ORDERED: ROPIVACAINE 0.5 % 30 ML VIAL ONE (07:59)
[2018-12-06] MEDS ORDERED: MIDAZOLAM 1 MG/ML 2 ML INJ ONE (07:59)
[2018-12-06] MEDS ORDERED: ROCURONIUM 50 MG INJ ONE (07:59)
[2018-12-06] MEDS ORDERED: LIDOCAINE 1% (MDV) 20 ML INJ ONE (07:59)
[2018-12-06] MEDS ORDERED: DIPHENHYDRAMINE 50 MG INJ IV PRN (08:00)
[2018-12-06] MEDS ORDERED: LABETALOL HCL 20MG INJ IV PRN (08:00)
[2018-12-06] MEDS ORDERED: HYDROmorphONE 1 MG/5 ML IV SYRINGE IV PRN ×2 (08:00)
[2018-12-06] MEDS ORDERED: MEPERIDINE 25 MG INJ IV PRN (08:00)
[2018-12-06] MEDS ORDERED: hydrALAzine 20 MG INJ IV PRN (08:00)
[2018-12-06] MEDS ORDERED: CEFAZOLIN 1 GM INJ ONE (08:34)
[2018-12-06] MEDS ORDERED: DEXAMETHASONE 4 MG/ML 5 ML INJ ONE (08:38)
[2018-12-06] MEDS ORDERED: ONDANSETRON 4 MG INJ ONE (08:38)
[2018-12-06] MEDS ORDERED: LABETALOL HCL 20MG INJ ONE (08:56)
[2018-12-06] MEDS: FAMOTIDINE 20 MG TAB PO SCH ×2 (09:00→20:54)
[2018-12-06] MEDS: FLUTICASONE 0.05% 16 GM NAS SPRAY NASAL SCH ×2 (09:00→20:50)
[2018-12-06] MEDS ORDERED: GLYCOPYRROLATE 0.4 MG INJ ONE (09:17)
[2018-12-06] MEDS ORDERED: NEOSTIGMINE 10 MG INJ ONE (09:17)
--- NOTE | 2018-12-06 09:44 | PAC ---
Date/Time of Note Date/Time of Note DATE: 12/06/18 TIME: 09:44 Post-Anesthesia Notes Post-Anesthesia Note Last documented vital signs Vital Signs Date Temp Pulse Resp B/P (MAP) Pulse Ox O2 O2 Flow FiO2 Time Delivery Rate 12/06/18 98 80 18 152/63 98 0944 12/06/18 Room Air 00:00 12/05/18 8.0 19:17 Activity: WNL Respiratory function: WNL Cardiovascular function: WNL Mental status: Baseline Pain reasonably controlled: Yes Hydration appropriate: Yes Nausea/Vomiting absent: Yes MAYTE MAYO DO Dec 06, 2018 09:44
--- NOTE | 2018-12-06 09:49 | OPR ---
Date/Time of Note Date/Time of Note DATE: 12/06/18 TIME: 09:43 Operative Report Procedure Date: Dec 06, 2018 Preoperative Diagnosis Cholelithiasis with chronic cholecystitis Postoperative Diagnosis Cholelithiasis with chronic cholecystitis Operation/Procedure Performed Laparoscopic cholecystectomy Surgeon Tere Ferguson MD Veterinary Technician Instructor None Anesthesia Type: general Anesthesiologist: MAYTE MAYO DO Estimated Blood Loss: 0 - 10 ml's Transfusion none Specimen Gallbladder Grafts/Implants none Tubes/Drains None Complications none Pt Condition Post Procedure: stable Disposition: PACU Indications Symptomatic cholelithiasis Procedure Description The patient is 1 day status post successful ERCP with stent placement. Today we are proceeding with completion cholecystectomy. After satisfactory general endotracheal anesthesia was achieved, the abdomen was prepped and draped in the usual fashion. The abdomen was insufflated with carbon dioxide through an umbilical Veress needle to 15 mmHg pressure. The Veress needle was removed and a 5 mm umbilical incision was made in the center of the umbilicus marked just above the small umbilical hernia. A 5 mm trocar was placed. A 5 mm 0 degree lens was placed. Laparoscopy was unremarkable other than a distended gallbladder. Under direct visualization a 12 mm epigastric trocar was placed as well as 2 more 5 mm right lateral abdominal trochars. The dome of the gallbladder was grasped and retracted superiorly. The infundibulum of the gallbladder was grasped and retracted inferolaterally. The hepatoduodenal ligament was carefully dissected between the gallbladder and the well-visualized tarun hepatis. The cystic duct was dissected circumferentially then triply hemoclipped and divided high at the junction of the gallbladder and cystic duct. The cystic artery was identified immediately posteriorly, and triply hemoclipped and divided. The gallbladder was then dissected from below using electrocautery dissection and placed fully intact into an Endo Catch removed via the epigastric route. Hemostasis was total and irrigant returned clear. The abdomen was then desufflated and all trochars were removed. The fascia of the epigastrium was closed with a single suture of 0 Vicryl. The subcu was closed with interrupted 3-0 Vicryl. The skin incisions were closed with subcuticular 4-0 Monocryl sutures and Dermabond. Sponge and needle counts were reported as correct x2. TERE FERGUSON MD Dec 06, 2018 09:49
[2018-12-06] MEDS ORDERED: ONDANSETRON 4 MG INJ IV PRN (10:00)
[2018-12-06] MEDS ORDERED: morphine 2 MG INJ IV PRN (10:00)
[2018-12-06] MEDS ORDERED: OXYCODONE/ACETAMINOPHEN (5/325) TAB PO PRN ×2 (10:00)
--- NOTE | 2018-12-06 12:21 | PN ---
Date/Time of Note Date/Time of Note DATE: 12/06/18 TIME: 12:21 Assessment/Plan VTE Prophylaxis Risk score (from Ns)>0 risk: 2 SCD applied (from Ns): Yes Pharmacological prophylaxis: NA/contraindicated Pharm contraindication: low risk/ambulating Lines/Catheters IV C[facility]ter Type [facility]from [facility]): Peripheral IV Urinary Cath still in place: No Assessment/Plan Hospital Course SUBJECTIVE: Status post laparoscopic cholecystectomy today. OBJECTIVE: Physical Exam General: Adequately build 63 year-old female lying in bed in no apparent distress. HEENT: Normocephalic, atraumatic. Eyes: Icteric sclerae, conjunctivae clear. ENT: Nasal septum midline, oral mucosa is dry. Neck supple, no JVD noticed. Respiratory: Bilaterally diminished breath sounds. No use of accessory muscles of respiration. No adventitious breath sounds. Cardiovascular: S1, S2 heard. Regular rate and rhythm. Abdomen: Soft and nondistended. Dressings over laparoscopic incision sites. Bowel sounds positive in all 4 quadrants. Genitourinary: Deferred. Extremities: No cyanosis, no clubbing, no edema. Peripheral pulses palpable. Neurologic: Cranial nerves II through XII grossly intact. The patient is awake, alert, and oriented. Skin: Normal skin turgor. No skin rashes. Labs & Vitals per chart ASSESSMENT & PLAN 63-year-old female with comorbidities including hypertension, hypothyroidism, migraine headache, and cholelithiasis who came to the emergency room with chief complaint of epigastric and right upper quadrant abdominal pain with ultrasound showing cholelithiasis. 1. Cholelithiasis with underlying choledocholithiasis. -Status post ERCP, sphincterectomy, removal of stones from the common bile duct, and CBD stent placement on 12/05/2018. -Status post laparoscopic cholecystectomy on 12/06/2018. 2. Chronic cholecystitis -Status post laparoscopic cholecystectomy on 12/06/2018. -Encourage frequent ambulation. -Encourage use of incentive spirometry. -Advancement of diet as per surgery. 3. Transaminitis with hyperbilirubinemia. -Most probably secondary to #1. -Hepatitis panel negative. -Gastroenterology following. 4. Hypertension. -Continue antihypertensives. 5. Hypothyroidism. -Continue Synthroid. 6. History of migraine headaches. -Continue PRN analgesics. 7. Dyslipidemia. -Total cholesterol of 237 and LDL of 149. -Reinforce a low-cholesterol diet. 8. Fluids, electrolytes, and nutrition. -Clear liquid diet. -Advance diet as tolerated. -IVFs. 9. DVT prophylaxis. -Bilateral SCDs. 9. Plan. -Continue pain control. -Encourage frequent ambulation and use of incentive spirometry. -Advancement of diet as per surgery. The patient was seen in collaboration with Dr. Lowe. Result Diagram: 12/06/18 0440 12/06/18 0440 Results 24hrs Laboratory Tests Test 12/06/18 04:38 12/06/18 04:40 Thyroid Stimulating Hormone (TSH) 2.860 Free Thyroxine 0.96 White Blood Count 9.0 # Red Blood Count 4.90 Hemoglobin 14.2 Hematocrit 43.2 Mean Corpuscular Volume 88.2 Mean Corpuscular Hemoglobin 29.0 Mean Corpuscular Hemoglobin Concent 32.9 Red Cell Distribution Width 14.2 Platelet Count 242 Mean Platelet Volume 10.6 H Immature Granulocytes % 0.400 Neutrophils % 86.0 H Lymphocytes % 11.6 L Monocytes % 1.9 Eosinophils % 0.0 Basophils % 0.1 Nucleated Red Blood Cells % 0.0 Immature Granulocytes # 0.040 H Neutrophils # 7.8 H Lymphocytes # 1.1 Monocytes # 0.2 L Eosinophils # 0.0 Basophils # 0.0 Nucleated Red Blood Cells # 0.0 Sodium Level 140 Potassium Level 4.5 Chloride Level 104 Carbon Dioxide Level 27 Anion Gap 9 Blood Urea Nitrogen 13 Creatinine 0.90 Est Glomerular Filtrat Rate mL/min > 60 Glucose Level 150 Calcium Level 9.7 Phosphorus Level 3.2 Magnesium Level 1.7 Total Bilirubin 1.1 Direct Bilirubin 0.00 Indirect Bilirubin 1.1 Aspartate Amino Transf (AST/SGOT) 162 H Alanine Aminotransferase (ALT/SGPT) 416 H Alkaline Phosphatase 152 H Total Protein 7.3 Albumin 4.1 Globulin 3.20 Albumin/Globulin Ratio 1.28 Exam/Review of Systems Exam Vitals Vital Signs Date Temp Pulse Resp B/P (MAP) Pulse Ox O2 O2 Flow FiO2 Time Delivery Rate 12/06/18 Nasal 2.0 12:03 Cannula 12/06/18 84 21 140/69 97 11:07 (92) 12/06/18 97.9 09:47 Intake and Output 12/05/18 12/05/18 12/06/18 1515:00 23:00 07:00 IntakeIntake Total 300 ml 250 ml BalanceBalance 300 ml 250 ml Results Results 24hrs Laboratory Tests Test 12/06/18 04:38 12/06/18 04:40 Thyroid Stimulating Hormone (TSH) 2.860 Free Thyroxine 0.96 White Blood Count 9.0 # Red Blood Count 4.90 Hemoglobin 14.2 Hematocrit 43.2 Mean Corpuscular Volume 88.2 Mean Corpuscular Hemoglobin 29.0 Mean Corpuscular Hemoglobin Concent 32.9 Red Cell Distribution Width 14.2 Platelet Count 242 Mean Platelet Volume 10.6 H Immature Granulocytes % 0.400 Neutrophils % 86.0 H Lymphocytes % 11.6 L Monocytes % 1.9 Eosinophils % 0.0 Basophils % 0.1 Nucleated Red Blood Cells % 0.0 Immature Granulocytes # 0.040 H Neutrophils # 7.8 H Lymphocytes # 1.1 Monocytes # 0.2 L Eosinophils # 0.0 Basophils # 0.0 Nucleated Red Blood Cells # 0.0 Sodium Level 140 Potassium Level 4.5 Chloride Level 104 Carbon Dioxide Level 27 Anion Gap 9 Blood Urea Nitrogen 13 Creatinine 0.90 Est Glomerular Filtrat Rate mL/min > 60 Glucose Level 150 Calcium Level 9.7 Phosphorus Level 3.2 Magnesium Level 1.7 Total Bilirubin 1.1 Direct Bilirubin 0.00 Indirect Bilirubin 1.1 Aspartate Amino Transf (AST/SGOT) 162 H Alanine Aminotransferase (ALT/SGPT) 416 H Alkaline Phosphatase 152 H Total Protein 7.3 Albumin 4.1 Globulin 3.20 Albumin/Globulin Ratio 1.28 Medications Medication Current Medications Famotidine (Pepcid) 20 mg BID PO Last administered on 12/05/18at 20:23; Admin Dose 20 MG; Start 12/05/18 at 09:00 IV Flush (NS 3 ml) 3 ml PER PROTOCOL IV ; Start 12/05/18 at 00:30 Ondansetron HCl (Zofran Inj) 4 mg Q6H PRN IV NAUSEA/VOMITING Last administered on 12/06/18at 10:32; Admin Dose 4 MG; Start 12/05/18 at 00:30 Acetaminophen (Tylenol Tab) 650 mg Q6H PRN PO .PAIN 1-3 OR TEMP; Start 12/05/18 at 00:30 Hydromorphone HCl (Dilaudid) 0.5 mg Q4H PRN IV .SEVERE PAIN 7-10; Start 12/05/18 at 00:30 Docusate Sodium (Colace) 100 mg Q12H PRN PO .CONSTIPATION; Start 12/05/18 at 00:30 Bisacodyl (Dulcolax) 5 mg DAILY PRN PO .CONSTIPATION; Start 12/05/18 at 00:30 Fluticasone Propionate (Flonase 0.05% Nasal) 1 spray BID NASAL Last administered on 12/05/18at 08:23; Admin Dose 1 SPRAY; Start 12/05/18 at 09:00 Loratadine (Claritin) 10 mg DAILY PRN PO allergy; Start 12/05/18 at 03:00 Losartan Potassium (Cozaar) 25 mg QHS PO Last administered on 12/05/18at 20:24; Admin Dose 25 MG; Start 12/05/18 at 03:00 Levothyroxine Sodium (Synthroid) 88 mcg DAILY@0600 PO Last administered on 12/05/18 07:28; Admin Dose 88 MCG; Start 12/05/18 at 06:00 Ketorolac Tromethamine (Toradol) 30 mg Q6H PRN IV PAIN LEVEL 1-3 Last administered on 12/05/18at 15:06; Admin Dose 30 MG; Start 12/05/18 at 15:00; Stop 12/08/18 at 14:59 Hydromorphone HCl (Dilaudid) 0.2 mg PACU PRN IV MILD PAIN 1-3; Start 12/06/18 at 08:00; Stop 12/06/18 at 14:00 Hydromorphone HCl (Dilaudid) 0.4 mg PACU PRN IV MOD PAIN 4-6 Last administered on 12/06/18at 10:32; Admin Dose 0.4 MG; Start 12/06/18 at 08:00; Stop 12/06/18 at 14:00 Labetalol HCl (Labetalol) 5 mg PACU ORDER PRN IV HIGH BLOOD PRESSURE; Start 12/06/18 at 08:00; Stop 12/06/18 at 14:00 Hydralazine HCl (Apresoline) 5 mg PACU ORDER PRN IV HIGH BLOOD PRESSURE Last administered on 12/06/18at 10:33; Admin Dose 5 MG; Start 12/06/18 at 08:00; Stop 12/06/18 at 14:00 Meperidine HCl (Demerol) 25 mg PACU ORDER PRN IV .RIGORS; Start 12/06/18 at 08:00; Stop 12/06/18 at 14:00 Diphenhydramine HCl (Benadryl) 25 mg PACU ORDER PRN IV .PRURITUS; Start 12/06/18 at 08:00; Stop 12/06/18 at 14:00 Oxycodone/ Acetaminophen (Percocet (5/ 325)) 1 tab Q4H PRN PO .MILD PAIN (1-3); Start 12/06/18 at 10:00 Oxycodone/ Acetaminophen (Percocet (5/ 325)) 2 tab Q4H PRN PO .MODERATE PAIN (4-6); Start 12/06/18 at 10:00 Morphine Sulfate (morphine) 2 mg ONCE PRN IV .SEVERE PAIN 7-10; Start 12/06/18 at 10:00; Stop 12/06/18 at 23:00 Ondansetron HCl (Zofran Inj) 4 mg Q6H PRN IV NAUSEA/VOMITING; Start 12/06/18 at 10:00 SAROJ FOLEY NP Dec 06, 2018 12:21
[2018-12-06] MEDS: KETOROLAC 30 MG INJ IV PRN (17:25)
[2018-12-06] MEDS: LOSARTAN 25 MG TAB PO SCH (20:50)
[2018-12-07] VITALS: BP 112/62; PULSE 63; RESP 18
[2018-12-07 07:54] VITALS: BP 120/61; PULSE 67; RESP 18
[2018-12-07] MEDS: FAMOTIDINE 20 MG TAB PO SCH (09:00)
[2018-12-07] MEDS: FLUTICASONE 0.05% 16 GM NAS SPRAY NASAL SCH (09:00)
[2018-12-07] MEDS: LEVOTHYROXINE 88 MCG TAB PO SCH (09:10)
[2018-12-07] MEDS ORDERED: DOCU-144 PO (09:39)
[2018-12-07] MEDS ORDERED: TRAM50TA PO (09:39)
[2018-12-07] MEDS ORDERED: CHOL100062 PO (09:39)
--- NOTE | 2018-12-07 09:44 | PDOCDIS ---
Discharge Instructions CONDITION [id number] Patient Condition: [id number] Stable HOME CARE INSTRUCTIONS: [id number] Diet Instructions: [id number] Low Fat /Cholesterol ACTIVITY: [id number] Activity Restrictions: [id number] Slowly Increase Activity Rest between Activity Do not Drive Avoid Heavy Housework [id number] Bathing Restrictions: [id number] Tub Bath [id number] Activity Restrictions [id number] Do not soak or scrub incision Comment: FOLLOW UP/APPOINTMENTS Follow-up Plan 1. Al Padgett MD Specialty: Gastroenterology Office Address [address] [place] [address] Office 2. Rob Chamorro MD Specialty: General Surgery Office Address [address] [place] [address] Office OTHER ORDERS: Other Orders: 1. Take a low-cholesterol diet as tolerated. 2. Keep incisions clean and dry. May shower. Avoid tub baths and swimming for 2 weeks. Use mild soap and pat dry the incisions. 3. Take medications as needed for pain. 4. Call the surgeon or go to the nearest ER if you have severe abdominal pain despite pain medications. 5. Call the surgeon or go to the nearest ER if you notice any bleeding or secretions coming out of the incision sites. Also call the surgeon if you notice any blood in stool, if you have persistent fevers, or any other unusual signs or symptoms. 6. Follow-up with the surgeon (Dr. Chamorro) in 7 days for incision check. Please call for appointment. 7. Avoid heavy lifting [more than 10-15 pounds] for 4 weeks. 8. Please follow-up with gastroenterology (Dr. Padgett) in 6 weeks for removal of stent. Please call for appointment. SAROJ FOLEY NP Dec 07, 2018 09:44
--- NOTE | 2018-12-07 09:47 | DS ---
Date/Time of Note Date/Time of Note DATE: 12/07/18 TIME: 09:46 Discharge Summary Admission/Discharge Info Admit Date/Time Dec 05, 2018 at 00:15 Discharge Date/Time Discharge Diagnosis 1. Cholelithiasis with underlying choledocholithiasis. Status post ERCP, sphin cterectomy, removal of stones from the common bile duct, and CBD stent placement on 12/05/2018. 2. Chronic cholecystitis. Status post laparoscopic cholecystectomy on 12/06/2018. 3. Transaminitis with hyperbilirubinemia. 4. Hypertension. 5. Hypothyroidism. 6. History of migraine headaches. 7. Dyslipidemia. Total cholesterol of 237 and LDL of 149. Patient Condition: Stable Consults 1. Al Padgett MD, Gastroenterology. 2. Rob Chamorro MD, General Surgery. Procedures G.I. LAB PROCEDURE DATE OF PROCEDURE: 12/05/2018 PROCEDURES: ERCP, sphincterotomy, removal of stones from the common bile duct and CBD stent was placed. PREOPERATIVE DIAGNOSIS: The patient is presenting with history of abdominal pain and she has got cholelithiasis on ultrasound. Liver enzymes are abnormal. This could be very likely suggestive of a common bile duct stone. Hence, the procedure is performed to rule out common duct stones. POSTOPERATIVE DIAGNOSIS: Sludge was removed from the common bile duct. Mildly dilated common bile duct noted. There was a filling defect noted in the common bile duct. Hence, at this time sphincterotomy was performed. Stent was removed. Common bile duct stent was placed. Operative Report Procedure Date: Dec 06, 2018 Preoperative Diagnosis Cholelithiasis with chronic cholecystitis Postoperative Diagnosis Cholelithiasis with chronic cholecystitis Operation/Procedure Performed Laparoscopic cholecystectomy Surgeon Rob Chamorro MD Hx of Present Illness This is a 63-year-old female with comorbidities including hypertension, hypothy roidism, migraine headache, and cholelithiasis who came to the emergency room with chief complaint of epigastric and right upper quadrant abdominal pain with ultrasound showing cholelithiasis. Hospital Course The patient's gallbladder ultrasound was showing cholelithiasis. The patient's LFTs were consistent with choledocholithiasis. Therefore, the patient underwent an ERCP with sphincterotomy, removal of stones from the common bile duct and CBD stent placement on 12/05/2018. The patient underwent a laparoscopic cholecystectomy on 12/06/2018. Status post cholecystectomy, the patient was started on a clear liquid diet and the diet was advanced as tolerated to a regular consistency diet without any significant gastrointestinal symptoms. The patient's transaminitis with hyperbilirubinemia improved following ERCP and cholecystectomy. The patient was encouraged on frequent ambulation and frequent use of incentive spirometry. The patient's chronic problems include hypertension. The patient was maintained on antihypertensives for the same. She has underlying hypothyroidism. The patient was maintained on Synthroid. She has underlying migraine headaches. She was maintained on PRN NSAIDs for her underlying migraines. The patient was also noted to have dyslipidemia with a total cholesterol of 237 and LDL of 149. The patient ideally needs to be started on a statin because of high cardiovascular risk. However, because of the underlying transaminitis, will defer the initiation of statins to the patient's primary care physician outside. The patient had a stable hospital course. The patient is stable to be discharged home. Discharge Instructions 1. Take a low-cholesterol diet as tolerated. 2. Keep incisions clean and dry. May shower. Avoid tub baths and swimming for 2 weeks. Use mild soap and pat dry the incisions. 3. Take medications as needed for pain. 4. Call the surgeon or go to the nearest ER if you have severe abdominal pain despite pain medications. 5. Call the surgeon or go to the nearest ER if you notice any bleeding or secretions coming out of the incision sites. Also call the surgeon if you notice any blood in stool, if you have persistent fevers, or any other unusual signs or symptoms. 6. Follow-up with the surgeon (Dr. Chamorro) in 7 days for incision check. Please call for appointment. 7. Avoid heavy lifting [more than 10-15 pounds] for 4 weeks. 8. Please follow-up with gastroenterology (Dr. Padgett) in 6 weeks for removal of stent. Please call for appointment. The patient verbalized understanding of her discharge instructions. At this time would like to thank all the consultants for seeing the patient, doing the necessary procedures, and providing clinical recommendations. The patient was seen in collaboration with Dr. Lowe. Home Meds Active Scripts Tramadol Hcl* (Ultram*) 50 Mg Tablet, 50 MG PO Q6H PRN for PAIN, #10 TAB Prov:SAROJ FOLEY PHARMACY CARE COORDINATOR 12/07/18 Docusate Sodium* (Colace*) 100 Mg Capsule, 100 MG PO BID, #20 CAP Prov:SAROJ FOLEY PHARMACY CARE COORDINATOR 12/07/18 Cholecalciferol* (Vitamin D3*) 1,000 Unit Tablet, 1000 UNIT PO DAILY, #30 TAB Prov:SAROJ FOLEY PHARMACY CARE COORDINATOR 12/07/18 Reported Medications Famotidine* (Acid Controller*) 20 Mg Tablet, 20 MG PO BID for 30 Days, #60 12/04/18 Diclofenac Potassium (Diclofenac Potassium) 50 Mg Tablet, 50 MG PO BID for 30 Days, #60 12/04/18 Loratadine* (Loratadine*) 10 Mg Tablet, 10 MG PO DAILY PRN for allergy 12/04/18 Fluticasone Propionate* (Fluticasone Propionate* Nasal) 50 Mcg/[place] - 16 Gm [place].susp, 1 SPRAY NASAL BID, #1 BOTTLE TO EACH NOSTRIL 12/04/18 Turmeric (TURMERIC) 1 Gm Powder, 1 GM MC DAILY 12/04/18 Levothyroxine Sodium (Levothroid) 88 Mcg Tablet, 88 MCG PO DAILY 07/29/12 Losartan Potassium* (Cozaar*) 25 Mg Tablet, 25 MG PO DAILY 07/29/12 Discontinued Reported Medications Ketotifen Fumarate (KETOTIFEN FUMARATE) 5 Ml Drops, 5 ML OP, BOTTLE 12/04/18 Naproxen* (Naproxen*) 500 Mg Tablet, 500 MG PO BID 07/29/12 Simvastatin (Simvastatin) 20 Mg Tablet, 20 MG PO DAILY 07/29/12 Discontinued Scripts Acetaminophen* (Tylenol*) 500 Mg Tab, 500 MG PO Q4H PRN for MILD PAIN LEVEL 1-3, #20 TAB Prov:MARISSA CERVANTES DO 02/21/18 Omeprazole* (Omeprazole*) 20 Mg Capsule.dr, 20 MG PO DAILY, #30 CAP Prov:EN JOSÉ MD 12/21/15 Hydrocodone Bit-Acetaminophen ([place]) 5-325 Mg Tablet, 1 TAB PO Q4H PRN for PAIN, #10 TAB Prov:EN JOSÉ MD 12/21/15 Follow-up Plan 1. Al Padgett MD Specialty: Gastroenterology Office Address [address] [place] [address] Office 2. Rob Chamorro MD Specialty: General Surgery Office Address [address] [facility] [address] [place] [address] Office Primary Care Provider Care Physician No Primary Time spent on discharge: > 30 minutes Pending Labs Laboratory Tests Test 12/07/18 04:48 White Blood Count 15.2 10^3/ul (4.8-10.8) Red Blood Count 4.18 10^6/ul (4.20-5.40) Hemoglobin 12.3 g/dl (12.0-16.0) Hematocrit 36.8 % (37.0-47.0) Mean Corpuscular Volume 88.0 fl (82.0-101.0) Mean Corpuscular Hemoglobin 29.4 pg (29.0-33.0) Mean Corpuscular Hemoglobin Concent 33.4 g/dl (32.0-37.0) Red Cell Distribution Width 15.0 % (11.5-14.5) Platelet Count 213 10^3/UL (140-415) Mean Platelet Volume 11.3 fl (7.4-10.4) Immature Granulocytes % 0.400 % (0.001-0.429) Neutrophils % 79.9 % (39.0-77.0) Lymphocytes % 13.9 % (15.0-51.0) Monocytes % 5.6 % (0.0-11.0) Eosinophils % 0.1 % (0.0-7.0) Basophils % 0.1 % (0.0-2.0) Nucleated Red Blood Cells % 0.0 /100WBC (0.0-0.0) Immature Granulocytes # 0.060 10^3/ul (0.0-0.031) Neutrophils # 12.2 10^3/ul (1.6-7.5) Lymphocytes # 2.1 10^3/ul (0.8-2.9) Monocytes # 0.9 10^3/ul (0.3-0.9) Eosinophils # 0.0 10^3/ul (0.0-0.5) Basophils # 0.0 10^3/ul (0.0-0.1) Nucleated Red Blood Cells # 0.0 10^3/ul (0.0-0.0) Sodium Level 143 mmol/L (135-144) Potassium Level 4.0 mmol/L (3.5-5.1) Chloride Level 107 mmol/L (97-110) Carbon Dioxide Level 27 mmol/L (21-31) Anion Gap 9 (5-13) Blood Urea Nitrogen 17 mg/dl (7-20) Creatinine 0.92 mg/dl (0.44-1.00) Est Glomerular Filtrat Rate mL/min > 60 mL/min (>60) Glucose Level 109 mg/dl (70-220) Calcium Level 9.2 mg/dl (8.4-10.2) Phosphorus Level 3.3 mg/dl (2.5-4.9) Magnesium Level 1.8 mg/dl (1.7-2.5) Total Bilirubin 0.9 mg/dl (0.2-1.3) Direct Bilirubin 0.00 mg/dl (0.00-0.20) Indirect Bilirubin 0.9 mg/dl (0-1.1) Aspartate Amino Transf (AST/SGOT) 71 IU/L (15-46) Alanine Aminotransferase (ALT/SGPT) 222 IU/L (13-69) Alkaline Phosphatase 93 IU/L (42-121) Total Protein 5.8 g/dl (6.1-8.1) Albumin 3.4 g/dl (3.3-4.9) Globulin 2.40 g/dl (1.3-3.2) Albumin/Globulin Ratio 1.41 SAROJ FOLEY NP Dec 07, 2018 09:47
--- NOTE | 2018-12-07 12:32 | QN ---
Documentation Comment Postoperative day #1 Excellent postoperative recovery Continued improvement in LFTs Abdominal examination is benign Cleared for discharge home today. TERE FERGUSON MD Dec 07, 2018 12:32
[2018-12-08] MEDS ORDERED: CHOLECALCIFEROL 1,000 UNIT TAB PO SCH (09:00)
== END 2018-12-07 13:19 | disposition home or self-care (01) | DRG 419 ==
LOC: E/R 18:58 → MS1 12-05 00:15
PROVIDERS: ADMIT Family Medicine; ATTEND Family Medicine
PROC: 0F798DZ Dilation of Common Bile Duct with Intraluminal Device, Via Natural or Artificial Opening Endoscopic (ICD-10-PCS; 2018-12-05)
PROC: 0FC98ZZ Extirpation of Matter from Common Bile Duct, Via Natural or Artificial Opening Endoscopic (ICD-10-PCS; 2018-12-05)
PROC: 0FT44ZZ Resection of Gallbladder, Percutaneous Endoscopic Approach (ICD-10-PCS; principal; 2018-12-06 07:30)
DX: K80.64 Calculus of gallbladder and bile duct with chronic cholecystitis without obstruction (principal); I10 Essential (primary) hypertension; E03.9 Hypothyroidism, unspecified; E78.5 Hyperlipidemia, unspecified
CPT/HCPCS: 36415; 74330; 76705; 80053; 80061; 80307; 81001; 82306; 83036; 83690; 83735; 84100; 84439; 84443; 84484; 85025; 85610; 86704; 86706; 86709; 86803; 87340; 88304; 93005; 96374; 96375; C2617; J0360; J0690; J1100; J1170; J1885; J2001; J2250; J2270; J2405; J2710; J2795; J3010

== ENCOUNTER 2018-12-22 18:36 | Emergency (ER) | payer OTHER ==
[~2018-12-22] VITALS: Ht 157.5 cm; Wt 79.2 kg
[~2018-12-22 18:36] MED LIST changes: +CHOL100062 PO; +DICL50TA2 PO; +DOCU-144 PO; +FAMO-142 PO; +FLUT16SP17 NASAL; -HYDR-906 PO; +LORA10TA3 PO; -NAPR-688 PO; -OMEP20CA16 PO; -SIMV20TA2 PO; +TRAM50TA PO; +TURM1POW MC; -TYL500 PO
[2018-12-22 18:52] VITALS: Ht 157.5 cm; Wt 79.2 kg
[2018-12-22] MEDS ORDERED: SOD CHLORIDE 0.9% 500 ML IV STA (23:01)
[2018-12-22] MEDS ORDERED: ONDANSETRON 4 MG INJ IV STA (23:01)
[2018-12-22] MEDS ORDERED: morphine 2 MG INJ IV STA (23:01)
--- NOTE | 2018-12-23 01:51 | ERD ---
ER Documentation Chief Complaint Chief Complaint EPIGASTRIC PAIN X'S 5 DAYS HPI This is a very pleasant 63-year-old female comes in with mild epigastric pain for the past 5 days. She says it is worse after she eats. Pain is mild to moderate intensity with mild associated nausea but no vomiting. No fevers no chills. No radiations. Patient is status post cholecystectomy last month. Denies any diarrhea. Denies any change in bowel habits. Denies any other current issues. ROS All systems reviewed and are negative except as per history of present illness. Medications Home Meds Active Scripts Tramadol Hcl* (Ultram*) 50 Mg Tablet, 50 MG PO Q6H PRN for PAIN, #10 TAB Prov:SAROJ FOLEY BOX GLUER 12/07/18 Docusate Sodium* (Colace*) 100 Mg Capsule, 100 MG PO BID, #20 CAP Prov:SAROJ FOLEY BOX GLUER 12/07/18 Cholecalciferol* (Vitamin D3*) 1,000 Unit Tablet, 1000 UNIT PO DAILY, #30 TAB Prov:SAROJ FOLEY BOX GLUER 12/07/18 Reported Medications Famotidine* (Acid Controller*) 20 Mg Tablet, 20 MG PO BID for 30 Days, #60 12/04/18 Diclofenac Potassium (Diclofenac Potassium) 50 Mg Tablet, 50 MG PO BID for 30 Days, #60 12/04/18 Loratadine* (Loratadine*) 10 Mg Tablet, 10 MG PO DAILY PRN for allergy 12/04/18 Fluticasone Propionate* (Fluticasone Propionate* Nasal) 50 Mcg/Mears - 16 Gm Mears.susp, 1 SPRAY NASAL BID, #1 BOTTLE TO EACH NOSTRIL 12/04/18 Turmeric (TURMERIC) 1 Gm Powder, 1 GM MC DAILY 12/04/18 Levothyroxine Sodium (Levothroid) 88 Mcg Tablet, 88 MCG PO DAILY 07/29/12 Losartan Potassium* (Cozaar*) 25 Mg Tablet, 25 MG PO DAILY 07/29/12 Allergies Allergies: Coded Allergies: No Known Allergy (Unverified , 12/04/18) PMhx/Soc History of Surgery: Yes (TONSILLECTOMY - 15 YEARSOLD, APPY 19 Y/O, MYESHA 11/2018) Anesthesia Reaction: No Hx Neurological Disorder: No Hx Respiratory Disorders: No Hx Cardiac Disorders: Yes (HTN, HYPER LIPEDEMIA) Hx Psychiatric Problems: No Hx Miscellaneous Medical Probl: No Hx Alcohol Use: No Hx Substance Use: No Hx Tobacco Use: No Smoking Status: Never smoker Physical Exam Vitals Vital Signs Date Temp Pulse Resp B/P (MAP) Pulse Ox O2 O2 Flow FiO2 Time Delivery Rate 12/23/18 78 16 133/82 93 Room Air 01:12 (99) 12/22/18 99.4 94 18 161/97 96 18:52 (118) Physical Exam Const: No acute distress Head: Atraumatic Eyes: Normal Conjunctiva ENT: Normal External Ears, Nose and Mouth. Neck: Full range of motion. No meningismus. Resp: Clear to auscultation bilaterally Cardio: Regular rate and rhythm, no murmurs Abd: Soft, non tender, non distended. Normal bowel sounds Skin: No petechiae or rashes Back: No midline or flank tenderness Ext: No cyanosis, or edema Neur: Awake and alert Psych: Normal Mood and Affect Result Diagram: 12/22/18 2333 12/22/18 2333 Results 24 hrs Laboratory Tests Test 12/22/18 23:33 12/22/18 23:41 White Blood Count 7.3 10^3/ul Red Blood Count 4.78 10^6/ul Hemoglobin 13.6 g/dl Hematocrit 42.1 % Mean Corpuscular Volume 88.1 fl Mean Corpuscular Hemoglobin 28.5 pg Mean Corpuscular Hemoglobin Concent 32.3 g/dl Red Cell Distribution Width 14.2 % Platelet Count 260 10^3/UL Mean Platelet Volume 10.5 fl Immature Granulocytes % 0.300 % Neutrophils % 59.6 % Lymphocytes % 30.0 % Monocytes % 7.8 % Eosinophils % 1.7 % Basophils % 0.6 % Nucleated Red Blood Cells % 0.0 /100WBC Immature Granulocytes # 0.020 10^3/ul Neutrophils # 4.3 10^3/ul Lymphocytes # 2.2 10^3/ul Monocytes # 0.6 10^3/ul Eosinophils # 0.1 10^3/ul Basophils # 0.0 10^3/ul Nucleated Red Blood Cells # 0.0 10^3/ul Sodium Level 141 mmol/L Potassium Level 4.0 mmol/L Chloride Level 102 mmol/L Carbon Dioxide Level 26 mmol/L Anion Gap 13 Blood Urea Nitrogen 10 mg/dl Creatinine 0.79 mg/dl Est Glomerular Filtrat Rate mL/min > 60 mL/min Glucose Level 109 mg/dl Calcium Level 9.9 mg/dl Total Bilirubin 0.9 mg/dl Direct Bilirubin 0.00 mg/dl Indirect Bilirubin 0.9 mg/dl Aspartate Amino Transf (AST/SGOT) 20 IU/L Alanine Aminotransferase (ALT/SGPT) 21 IU/L Alkaline Phosphatase 82 IU/L Total Protein 7.4 g/dl Albumin 4.4 g/dl Globulin 3.00 g/dl Albumin/Globulin Ratio 1.46 Lipase 83 U/L Urine Color YELLOW Urine Clarity CLEAR Urine pH 5.0 Urine Specific [place] 1.012 Urine Ketones NEGATIVE mg/dL Urine Nitrite NEGATIVE mg/dL Urine Bilirubin NEGATIVE mg/dL Urine Urobilinogen NEGATIVE mg/dL Urine Leukocyte Esterase TRACE [place]/ul Urine Microscopic RBC 3 /HPF Urine Microscopic WBC 5 /HPF Urine Mucus FEW /HPF Urine Hemoglobin 2+ mg/dL Urine Glucose NEGATIVE mg/dL Urine Total Protein NEGATIVE mg/dl Current Medications Medications Dose Sig/Reagan Start Time Status Last (Trade) Ordered Route PRN Stop Time Admin Dose Reason Admin Sodium 500 ml @ Q1H STAT 12/22/18 DC 12/22/18 Chloride 500 mls/hr IV 23:01 23:48 12/23/18 00:00 Morphine 2 mg ONCE STAT 12/22/18 DC 12/22/18 Sulfate IV 23:01 23:48 (morphine) 12/22/18 23:03 Ondansetron 4 mg ONCE STAT 12/22/18 DC 12/22/18 HCl (Zofran IV 23:01 23:47 Inj) 12/22/18 23:03 Procedures/MDM Emergency department course: Patient seen and evaluated triage nurse. Placed in bed from evaluation. Had blood work done. A stat EKG was placed on continuous health and wellness manager with continuous pulse oximetry. Serial abdominal exams were normal in the ER. No evidence of surgical abdomen on serial exams here Diagnostic data: EKG: Rate/Rhythm: [Normal Sinus Rhythm] QRS, ST, T-waves: [No changes consistent w/ acute ischemia] Impression: [No evidence of ischemia or arrhythmia] Chest X-ray 1V Interpreted by me: Soft Tissue: No acute abnormalities Bones: No acute abnormalities Mediastinum/Cardiac Silhouette/Lungs: [No acute abnormalities] Medical decision making: Patient's gastrointestinal symptoms have stabilized while in the department. No evidence of severe dehydration, sepsis, or surgical abdomen. Extensive discussion with family and patient that occult disease cannot be ruled out. 8 hour recheck for repeat abdominal exam is planned. Departure Diagnosis: Primary Impression: Epigastric pain Condition: Stable BETTY EDDY Dec 23, 2018 01:51
[2018-12-23] MEDS ORDERED: SUCR1TAB56 PO (01:54)
[2018-12-23 02:29] VITALS: BP 121/85; PULSE 88; RESP 16
== END 2018-12-23 02:34 | disposition home or self-care (01) ==
LOC: E/R 18:36
DX: R10.13 Epigastric pain (principal)
CPT/HCPCS: 36415; 71045; 76705; 80053; 81001; 83690; 85025; 93005; 96374; J2270; J2405; J7040; Z7502

== ENCOUNTER 2019-02-13 13:37 | Emergency (ER) | payer OTHER ==
[~2019-02-13] VITALS: Ht 167.6 cm; Wt 78.0 kg
[~2019-02-13 13:37] MED LIST changes: +SUCR1TAB56 PO
[2019-02-13 13:41] VITALS: Ht 167.6 cm; Wt 78.0 kg
[2019-02-13] MEDS ORDERED: KETOROLAC 30 MG INJ IV STA (15:19)
[2019-02-13] MEDS ORDERED: SOD CHLORIDE 0.9% 1,000 ML IV STA (15:19)
[2019-02-13] MEDS ORDERED: ONDANSETRON 4 MG INJ IV STA (15:19)
[2019-02-13] MEDS ORDERED: DICL50TA11 PO (15:51)
[2019-02-13] MEDS ORDERED: LOSA25TA12 PO (15:52)
[2019-02-13] MEDS ORDERED: FLUT16SP17 NASAL (15:52)
[2019-02-13] MEDS ORDERED: LEVO88TA3 PO (15:52)
[2019-02-13] MEDS ORDERED: FAMO20TA18 PO (15:53)
[2019-02-13] MEDS ORDERED: LORA10TA3 PO (15:53)
[2019-02-13] MEDS ORDERED: ONDA4TAB14 PO (18:06)
[2019-02-13] MEDS ORDERED: IBUP-1542 PO (18:06)
--- NOTE | 2019-02-13 18:08 | ERD ---
ER Documentation Chief Complaint Chief Complaint Complains of post op problem x2 days HPI Patient is a 63-year-old female with hypertension who presents with epigastric pain. She has a biliary stent in place and had her gallbladder removed in November. She has had pain since. She feels dizzy and bloated. She said that she tried "pain meds". Upon review of old medical records the patient has multiple visits to the ER for various complaints. Review of the emergency department information exchange system shows visits to 2 separate emergency departments for a total of 5 visits over the past 1 year. ROS All systems reviewed and are negative except as per history of present illness. Medications Home Meds Active Scripts Ondansetron (Ondansetron Odt) 4 Mg Tab.rapdis, 4 MG PO Q6H PRN for NAUSEA AND/OR VOMITING, #10 TAB Prov:POP PATHAK MD 02/13/19 Ibuprofen* (Motrin*) 600 Mg Tab, 600 MG PO Q6H PRN for PAIN AND OR ELEVATED TEMP, #30 TAB Prov:POP PATHAK MD 02/13/19 Reported Medications Loratadine* (Loratadine*) 10 Mg Tablet, 10 MG PO NEEDED, #30 TAB 02/13/19 Famotidine* (Famotidine*) 20 Mg Tablet, 20 MG PO DAILY, #30 TAB 02/13/19 Levothyroxine Sodium* (Levothyroxine Sodium*) 88 Mcg Tablet, 88 MCG PO BEFORE BREAKFAST, #30 TAB 02/13/19 Losartan Potassium* (Losartan Potassium*) 25 Mg Tablet, 25 MG PO DAILY, TAB 02/13/19 Fluticasone Propionate* (Fluticasone Propionate* Nasal) 50 Mcg/Leighton - 16 Gm [place].susp, 1 SPRAY NASAL DAILY, #1 BOTTLE TO EACH NOSTRIL 02/13/19 Diclofenac Sodium* (Diclofenac Sodium*) 50 Mg Tablet.dr, 50 MG PO NEEDED, #60 TAB 02/13/19 Discontinued Reported Medications Famotidine* (Acid Controller*) 20 Mg Tablet, 20 MG PO BID for 30 Days, #60 12/04/18 Diclofenac Potassium (Diclofenac Potassium) 50 Mg Tablet, 50 MG PO BID for 30 Days, #60 12/04/18 Loratadine* (Loratadine*) 10 Mg Tablet, 10 MG PO DAILY PRN for allergy 12/04/18 Fluticasone Propionate* (Fluticasone Propionate* Nasal) 50 Mcg/Leighton - 16 Gm [place]on.susp, 1 SPRAY NASAL BID, #1 BOTTLE TO EACH NOSTRIL 12/04/18 Turmeric (TURMERIC) 1 Gm Powder, 1 GM MC DAILY 12/04/18 Levothyroxine Sodium (Levothroid) 88 Mcg Tablet, 88 MCG PO DAILY 07/29/12 Losartan Potassium* (Cozaar*) 25 Mg Tablet, 25 MG PO DAILY 07/29/12 Discontinued Scripts Sucralfate* (Carafate*) 1 Gm Tab, 1 GM PO QID, #30 TAB Prov:BETTY EDDY 12/23/18 Tramadol Hcl* (Ultram*) 50 Mg Tablet, 50 MG PO Q6H PRN for PAIN, #10 TAB Prov:SAROJ FOLEY LAUNDRY PRESS OPERATOR 12/07/18 Docusate Sodium* (Colace*) 100 Mg Capsule, 100 MG PO BID, #20 CAP Prov:SAROJ FOLEY LAUNDRY PRESS OPERATOR 12/07/18 Cholecalciferol* (Vitamin D3*) 1,000 Unit Tablet, 1000 UNIT PO DAILY, #30 TAB Prov:SAROJ FOLEY LAUNDRY PRESS OPERATOR 12/07/18 Allergies Allergies: Coded Allergies: sulfamethoxazole (Unverified Adverse Reaction, Unknown, WEAKNESS, 02/13/19) trimethoprim (Unverified Adverse Reaction, Unknown, WEAKNESS, 02/13/19) PMhx/Soc History of Surgery: Yes (TONSILLECTOMY - 15 YEARSOLD, APPY 19 Y/O, MYESHA 11/2018) Anesthesia Reaction: No Hx Neurological Disorder: No Hx Respiratory Disorders: No Hx Cardiac Disorders: Yes (HTN, HYPER LIPEDEMIA) Hx Psychiatric Problems: No Hx Miscellaneous Medical Probl: No Hx Alcohol Use: No Hx Substance Use: No Hx Tobacco Use: No Smoking Status: Never smoker FmHx Family History: No diabetes Physical Exam Vitals Vital Signs Date Temp Pulse Resp B/P (MAP) Pulse Ox O2 O2 Flow FiO2 Time Delivery Rate 02/13/19 98.4 84 16 147/87 97 Room Air 15:15 (107) 02/13/19 99.4 98 20 159/95 97 13:41 (116) Physical Exam Const: Mild distress Head: Atraumatic Eyes: Normal Conjunctiva ENT: Normal External Ears, Nose and Mouth. Neck: Full range of motion. No meningismus. Resp: Clear to auscultation bilaterally Cardio: Regular rate and rhythm, no murmurs Abd: Soft, diffuse tenderness to palpation without rebound or guarding Skin: No petechiae or rashes Back: No midline or flank tenderness Ext: No cyanosis, or edema Neur: Awake and alert Psych: Normal Mood and Affect Result Diagram: 02/13/19 1538 02/13/19 1538 Results 24 hrs Laboratory Tests Test 02/13/19 15:38 White Blood Count 10.9 10^3/ul Red Blood Count 5.13 10^6/ul Hemoglobin 14.8 g/dl Hematocrit 45.2 % Mean Corpuscular Volume 88.1 fl Mean Corpuscular Hemoglobin 28.8 pg Mean Corpuscular Hemoglobin Concent 32.7 g/dl Red Cell Distribution Width 13.5 % Platelet Count 245 10^3/UL Mean Platelet Volume 10.6 fl Immature Granulocytes % 0.300 % Neutrophils % 63.8 % Lymphocytes % 27.8 % Monocytes % 6.3 % Eosinophils % 1.3 % Basophils % 0.5 % Nucleated Red Blood Cells % 0.0 /100WBC Immature Granulocytes # 0.030 10^3/ul Neutrophils # 7.0 10^3/ul Lymphocytes # 3.0 10^3/ul Monocytes # 0.7 10^3/ul Eosinophils # 0.1 10^3/ul Basophils # 0.1 10^3/ul Nucleated Red Blood Cells # 0.0 10^3/ul Sodium Level 143 mmol/L Potassium Level 3.9 mmol/L Chloride Level 104 mmol/L Carbon Dioxide Level 28 mmol/L Anion Gap 11 Blood Urea Nitrogen 13 mg/dl Creatinine 0.82 mg/dl Est Glomerular Filtrat Rate mL/min > 60 mL/min Glucose Level 105 mg/dl Calcium Level 9.9 mg/dl Total Bilirubin 0.9 mg/dl Direct Bilirubin 0.00 mg/dl Indirect Bilirubin 0.9 mg/dl Aspartate Amino Transf (AST/SGOT) 22 IU/L Alanine Aminotransferase (ALT/SGPT) 26 IU/L Alkaline Phosphatase 98 IU/L Troponin I < 0.012 ng/ml Total Protein 8.1 g/dl Albumin 4.6 g/dl Globulin 3.50 g/dl Albumin/Globulin Ratio 1.31 Lipase 72 U/L Current Medications Medications Dose Sig/Reagan Start Time Status Last (Trade) Ordered Route PRN Stop Time Admin Dose Reason Admin Sodium 1,000 ml @ Q1H STAT 02/13/19 DC 02/13/19 Chloride 1,000 mls/hr IV 15: 15:46 02/13/19 16:18 Ondansetron 4 mg ONCE STAT 02/13/19 DC 02/13/19 HCl (Zofran IV 15: 15:52 Inj) 02/13/19 15:20 Ketorolac 30 mg ONCE STAT 02/13/19 DC 02/13/19 Tromethamine IV 15: 15:53 (Toradol) 02/13/19 15:20 Procedures/MDM EKG read by me: Rate/Rhythm: Regular rate and rhythm at a rate of 81 Intervals: Normal Impression: No evidence of ischemia or arrhythmia CT abdomen and pelvis read by radiology. Patient is a 63-year-old female with hypertension who presents with abdominal pain. Laboratory studies are normal. CT scan shows no signs of obstruction and the biliary stent is in place. At this point I doubt appendicitis, cholecystitis, pancreatitis, or bowel obstruction. I believe outpatient management is appropriate. The patient will need close follow-up with the primary doctor within 24 to 48 hours. She can return sooner for any worsening symptoms. Departure Diagnosis: Primary Impression: Abdominal pain Abdominal location: generalized Qualified Codes: R10.84 - Generalized abdominal pain Condition: Fair Patient Instructions: Abdominal Pain Referrals: [facility] (PCP) Additional Instructions: Call your primary care doctor TOMORROW for an appointment during the next 1-2 days.See the doctor sooner or return here if your condition worsens before your appointment time. POP PATHAK MD February 13, 2019 18:08
[2019-02-13 18:24] VITALS: BP 150/83; PULSE 76; RESP 16
--- NOTE | 2019-02-15 11:58 | RADRPT ---
Vent Rate: 81 bpm RR Interval: 0 msec UT Interval: 172 msec QRS Duration: 80 msec QT Interval: 416 msec QTC Interval: 483 msec P-R-T [place]: 52 - 43 - 29 degrees Normal sinus rhythm Cannot rule out Anterior infarct , age undetermined Abnormal ECG Electronically Signed By: *[facility]
== END 2019-02-13 18:31 | disposition home or self-care (01) ==
LOC: E/R 13:37
DX: R10.84 Generalized abdominal pain (principal)
CPT/HCPCS: 36415; 74176; 80053; 83690; 84484; 85025; 93005; 96374; 96375; J1885; J2405; J7030; Z7502